=== PATIENT | female | born 1945 | race Asian ===

== ENCOUNTER 2024-04-09 15:21 | Emergency (ER) | payer MEDICARE, SELFPAY ==
[2024-04-09 15:50] VITALS: BP 134/88; PULSE 81; RESP 18; TEMP 36.2; O2SAT 98; BMI 28.8
--- NOTE | 2024-04-09 15:51 | ED.GENADULT ---
HPI - General Adult General Chief complaint: Recheck/Abnormal Lab/Rx Stated complaint: patient states doc sent her here for shot Related Data Allergies Allergy/AdvReac Type Severity Reaction Status Date / Time No Known Allergies Allergy Verified 04/09/24 16:02 [facility] Social History Social History Do you have a plan to hurt others: No Plan Physical Exam ED Vital Signs: Vital Signs - 24 hr 04/09/24 15:50 Temperature 97.2 F Pulse Rate 81 Respiratory Rate 18 Blood Pressure 134/88 Pulse Oximetry 98 Oxygen Delivery Method Room Air BMI result Body Mass Index 28.8 Course Course Course Narrative: This is a rapid medical exam performed by Jocelyne Montanez NP: Additional HPI, ROS, PE not included below will be deferred to primary provider. Patient is an 79-year-old Colombian speaking female presenting to the ED stating that her PCP told her that her iron level was low and potassium level is high, advised her to come to the ED. [facility] grandson stating that they changed their mind and want to leave, will follow up with PCP. Plan: EKG, labs Video hourly sign language interpreter # [id number] Discharge Plan Discharge Clinical Impression: Diagnosis unknown Patient Disposition: Left W/O Completing Treatment Print Language: Unknown
--- NOTE | 2024-04-09 16:08 | PC.NURSE ---
Patient and family member state that they have changed their mind about getting blood drawn and being seen at this time stating that they will call PCP for follow up.
--- OUTSIDE RECORDS SUMMARY | 2024-04-09 16:40 | XMS_ITS | Continuity of Care Document ---
Author Organization [facility] Address [address] [place] [address]- Care Team Providers Care Email Marketing Specialist Name Role Phone Not on Staff, PCP Primary Care Physician Unavail able Encounter [facility] Date(s): 02/12/23 - 03/14/23 [facility] [address], [place] [address] Attending Physician: Fabrizio Randall Admitting Physician: Fabrizio Randall Referring Physician: AdmtrFabrizio Allergies, Adverse Reactions, Alerts No Known Allergies Medications aspirin 81 mg oral delayed release tablet 81 mg, 1, tablet, By Mouth, Daily, # 30 tablet, Refills 0, Maintenance, 07/23/19 8:27:53 EDT Start Date: 07/23/19 Status: Ordered furosemide 20 mg oral tablet 20 mg, 1, tablet, By Mouth, Daily, # 30 tablet, Refills 0, Maintenance, 07/23/19 8:28:14 EDT Start Date: 07/23/19 Status: Ordered lisinopril 5 mg oral tablet 5 mg, 1, tablet, By Mouth, Daily, # 30 tablet, Refills 0, Maintenance, 07/23/19 8:27:40 EDT Start Date: 07/23/19 Status: Ordered metoprolol succinate 25 mg oral capsule, extended release 1 capsule = 25 mg, By Mouth, Daily, # 30 capsule, 0 Refills, Maintenance, 07/23/19 8:27:28 EDT, ER Capsule Start Date: 07/23/19 Status: Ordered naproxen 375 mg oral tablet 375 mg, 1, tablet, By Mouth, 2 times a day, # 180 tablet, Refills 0, Maintenance, 07/23/19 8:28:42 EDT Start Date: 07/23/19 Status: Ordered Patient Care team information Care Team Personnel Name: Not on Staff, PCP Position: S Physician (General Medicine) Member Role: PCP
== END 2024-04-09 16:47 | disposition left against medical advice (07) ==
PROVIDERS: Emergency Provider Emergency Medicine
DX: R78.9 Finding of unspecified substance, not normally found in blood (principal); Z53.21 Procedure and treatment not carried out due to patient leaving prior to being seen by health care provider
CPT/HCPCS: 99281

== ENCOUNTER 2024-04-10 16:56 | Emergency (ER) | payer MEDICARE, SELFPAY ==
[2024-04-10 17:00] VITALS: BP 168/63; PULSE 78; RESP 16; TEMP 36.1; O2SAT 98; BMI 26.5
--- NOTE | 2024-04-10 17:00 | ECG_ITS ---
Test Reason : HIGH POTASSIUM Blood Pressure : / mmHG Vent. Rate : 082 BPM Atrial Rate : 082 BPM P-R Int : 178 ms QRS Dur : 088 ms QT Int : 376 ms P-R-T Axes : 041 -13 041 degrees QTc Int : 439 ms Normal sinus rhythm Minimal voltage criteria for LVH, may be normal variant ( R in aVL ) Borderline ECG When compared with ECG of 04-JUL-2019 07:04, ST no longer depressed in Lateral leads T wave inversion no longer evident in Lateral leads Referred By: Amber Almeida Electronically Signed By:RACHEL BATISTA
--- NOTE | 2024-04-10 17:00 | ED.GENADULT ---
HPI - General Adult General Chief complaint: Recheck/Abnormal Lab/Rx Stated complaint: High potassium Time Seen by Provider: 04/10/24 18:09 History of Present Illness ED Provider: Dr. Guo HPI narrative: 79 y/o F patient; PMH HTN, HFpEF; presents from home with report of high potassium level. The patient has PCP performed labs completed on Monday04/09/2024. She was called and told she had an elevated potassium and should proceed to the emergency department. She arrived in the emergency department yesterday 04/09/2024 but elected to leave prior to treatment. She is currently prescribed Lisinopril 5mg and Lasix 20mg daily. She denies any symptoms. Related Data Allergies Allergy/AdvReac Type Severity Reaction Status Date / Time No Known Allergies Allergy Verified 04/10/24 17:02 Review of Systems Review of Systems: Yes all other systems are reviewed and are negative Neurologic: Denies Sensory deficit (Neuro) [facility] Past Medical History Attestation statement: The following information was validated with the patient. Source: unable to obtain Social History Social History Advance Directives: No Advance Directives Information Provided: No Physical Exam ED Vital Signs: Vital Signs - 24 hr 04/10/24 17:00 04/10/24 19:18 Temperature 96.9 F 98.4 F Pulse Rate 78 79 Respiratory Rate 16 16 Blood Pressure 168/63 H 163/78 H Pulse Oximetry 98 98 Oxygen Delivery Method Room Air Room Air BMI result Body Mass Index 26.5 Patient is afebrile, hypertensive. Const General: cooperative and no acute distress Orientation/consciousness: patient oriented x3 HENMT Head: Yes normal to inspection and Yes atraumatic Eyes General: appearance normal, both eyes and all related structures Pupils: Equal, round and reactive pupils present EOM: EOMs intact bilaterally Neck Neck: Yes normal visual inspection, Yes full ROM, Yes supple and No tender Chest Chest palpation & inspection: normal inspection of the chest and normal palpation of entire chest wall Resp Effort & Inspection: normal respiratory effort, able to speak in complete sentences, no cough and no respiratory distress Auscultation: clear to auscultation bilaterally Cardio Rate: regular rate Rhythm: regular rhythm Peripheral pulses: Peripheral pulses 2+ throughout GI Inspection: Yes normal to inspection, No Abdominal wall edema and No distended Palpation (GI): Soft to palpation, not firm, nontender, no guarding and not rigid Auscultation: normal bowel sounds General: Yes no CVA tenderness Back/Spine/Pelvis Back: no CVA tenderness Neuro General: patient oriented x3 Cranial nerves: Yes Equal, round and reactive pupils present Motor exam (neuro): 5/5 motor strength present throughout Sensory Exam: No Sensory deficit (Neuro) Course Course Course Narrative: This is an RME done by JEREMIAH Almeida: Additional HPI, ROS, PE not included below will be deferred to primary provider. 79 yo f presents for repeat labs was noted to have a high potassium on outpatient labs. No cp. Reevaluation(s) Reevaluation #1: Patient is afebrile and hemodynamically stable. Reviewed triage labs and EKG. EKG is NSR 82BPM without ischemic changes. Labs with mild anemia 10.8. Potassium 5.7. Cr 2.06 (prior 1.76 in 2019). Providing 1L IVF, insulin with dextrose, and Lokelma to shift potassium. Discussed with hospitalist criteria for possible admission given hyperkalemia. Hospitalist recommended repeat BMP and to stop lisinopril. Repeat BMP with improvement in Cr to 1.81, improvement in K to 5.5. Patient remains asymptomatic. Plan: Discharge to home with PCP follow up within 48 hours Condition: Stable Medications Administered Generic Name Dose Route Start Last Admin Trade Name Freq PRN Reason Stop Dose Admin Dextrose 1,000 mls @ 50 mls/hr 04/10/24 18:30 04/10/24 21:14 D10 IVCONT 50 mls/hr .Q20H GERMAIN Administration Discontinued Medications Generic Name Dose Route Start Last Admin Trade Name Freq PRN Reason Stop Dose Admin Lactated Ringer's 1,000 mls @ 999 mls/hr 04/10/24 18:30 04/10/24 21:15 Lr IV 04/10/24 19:30 Infused .Q1H1M GERMAIN Infusion Insulin Human Regular 5 unit 04/10/24 18:21 04/10/24 19:47 Insulin Regular, Human 100 Unit/Ml 10 Ml Vial IVPUSH 04/10/24 18:22 5 unit ONCE ONE Administration Sodium Zirconium Cyclosilicate 10 gm 04/10/24 18:21 04/10/24 19:47 Sodium Zirconium Cyclosilicate 10 Gm Powd.Pack PO 04/10/24 18:22 10 gm ONCE ONE Administration Medical Decision Making Lab Data 04/10/24 17:17 04/10/24 21:12 Labs: Lab Results 04/10/24 04/10/24 Range/Units 17:17 21:12 WBC 9.0 (4.8-10.8) X10*3/uL RBC 4.04 L (4.20-5.50) X10*6/uL Hgb 10.8 L (12.0-16.0) g/dl Hct 33.3 L (37.0-47.0) % MCV 82.4 (80.0-98.0) fL MCH 26.7 L (27.0-33.0) pg MCHC 32.4 (31.0-35.0) g/dl RDW 15.4 (11.0-16.0) % Plt Count 312 (160-400) X10*3/uL MPV 8.4 L (9.4-12.3) fL Immature Gran % (Auto) 0.3 (0.0-0.4) % Neut % (Auto) 38.0 L (45-73) % Lymph % (Auto) 45.2 H (20-40) % [place] % (Auto) 5.4 (2-11) % Eos % (Auto) 11.0 H (0-4) % Baso % (Auto) 0.1 (0-2) % Lymph # (Auto) 4.1 (1.2-4.9) X10*3/uL [place] # (Auto) 0.5 (0.1-1.2) X10*3/uL Eos # (Auto) 1.0 H (0.0-0.4) X10*3/uL Baso # (Auto) 0.0 (0.0-0.2) X10*3/uL Abs Immat Gran (auto) 0.03 (0.00-0.03) X10*3/uL Absolute Neuts (auto) 3.4 (2.0-8.3) x10*3/uL Absolute Nucleated RBC 0.000 (0.0-0.012) X10*3/uL Nucleated RBC % (auto) 0.0 (0.0-0.2) /100WBC Sodium 137 138 (135-145) mmol/L Potassium 5.7 H 5.5 H (3.3-5.1) mmol/L Chloride 107 108 (96-108) mmol/L Carbon Dioxide 25 23 (22-29) mmol/L Anion Gap 11 L 13 (12-20) BUN 29 H 27 H (9-16) mg/dL Creatinine 2.06 H 1.81 H (0.5-1.4) mg/dL Estim Creat Clear Calc 17.5 20.0 Estimated GFR 23 27 Random Glucose 111 81 (60-115) mg/dL Calcium 8.8 8.7 (8.4-10.2) mg/dL Magnesium 2.1 (1.6-2.6) mg/dL Total Bilirubin 0.3 (0.0-1.0) mg/dL AST 18 (5-31) U/L ALT 10 (0-31) U/L Alkaline Phosphatase 75 (39-117) U/L Total Protein 7.5 (6.5-8.0) g/dL Albumin 3.7 (3.5-5.0) g/dL Independent Interpretation I performed an independent interpretation of an: EKG Interpretation: EKG is NSR 82BPM without ischemic changes. Discharge Plan Discharge Clinical Impression: Hyperkalemia Patient Disposition: Home, Self-Care Instructions: Hyperkalemia (ED) Additional Instructions: As we discussed, you were seen in the hospital for elevated potassium. You received IV medications and your potassium and kidney function improved. STOP TAKING YOUR LISINOPRIL IMMEDIATELY. Follow up with your PCP within 48 hours for repeat labs and re-evaluation. Return to the emergency department for: Passing out Chest pain Difficulty breathing Print Language: Nepalese (Pashto)
[2024-04-10 17:20] LABS: MANUAL DIFF FLAG NO
[2024-04-10 17:22] LABS: Basophils Percent Auto 0.1 % (0-2); Hematocrit 33.3 % (37.0-47.0); Hemoglobin 10.8 g/dl (12.0-16.0); Imm Gran Abs Auto 0.03 X10*3/uL (0.00-0.03); Imm Gran Pct Auto 0.3 % (0.0-0.4); Lymphocytes Absolute Auto 4.1 X10*3/uL (1.2-4.9); Lymphocytes Percent Auto 45.2 % (20-40); Mean Corpuscular HGB Conc 32.4 g/dl (31.0-35.0); Mean Corpuscular Hemoglobin 26.7 pg (27.0-33.0); Mean Corpuscular Volume 82.4 fL (80.0-98.0); Mean Platelet Volume 8.4 fL (9.4-12.3); Monocytes Absolute Auto 0.5 X10*3/uL (0.1-1.2); Monocytes Percent Auto 5.4 % (2-11); Neutrophils Absolute Auto 3.4 x10*3/uL (2.0-8.3); Platelet Count 312 X10*3/uL (160-400); Red Blood Count 4.04 X10*6/uL (4.20-5.50); Red Cell Distribution Width 15.4 % (11.0-16.0)
[2024-04-10 17:34] LABS: Alanine Aminotransferase 10 U/L (0-31); Albumin Level 3.7 g/dL (3.5-5.0); Alkaline Phosphatase 75 U/L (39-117); Anion Gap 11 (12-20); Aspartate Amino Transferase 18 U/L (5-31); Bilirubin Total 0.3 mg/dL (0.0-1.0); Blood Urea Nitrogen 29 mg/dL (9-16); Calcium 8.8 mg/dL (8.4-10.2); Carbon Dioxide 25 mmol/L (22-29); Chloride 107 mmol/L (96-108); Creatinine Clr Calc Pharmacy 17.5; Estimated Glomerular Filt Rate 23; Glucose Random 111 mg/dL (60-115); Magnesium 2.1 mg/dL (1.6-2.6); Potassium 5.7 mmol/L (3.3-5.1); Sodium 137 mmol/L (135-145); Total Protein 7.5 g/dL (6.5-8.0)
[2024-04-10 19:18] VITALS: BP 163/78; PULSE 79; RESP 16; TEMP 36.9; O2SAT 98
--- NOTE | 2024-04-10 19:19 | MHC.EDTECH ---
Patient vitals taken and Patient was hooked up to cardiac cath rn ,Patient was change into hospital attire .
[2024-04-10] MEDS: Insulin Regular, Human 100 UNIT/ML 10 ML VIAL IVPUSH (19:47)
[2024-04-10] MEDS: Sodium Zirconium Cyclosilicate 10 GM POWD.PACK PO (19:47)
[2024-04-10] MEDS: Lactated Ringers 1,000 ML 999 ML IV (19:53)
[2024-04-10] MEDS: Dextrose 10 % 1,000 ML 50 ML IVCONT (21:14)
[2024-04-10 21:32] LABS: Anion Gap 13 (12-20); Blood Urea Nitrogen 27 mg/dL (9-16); Calcium 8.7 mg/dL (8.4-10.2); Carbon Dioxide 23 mmol/L (22-29); Chloride 108 mmol/L (96-108); Estimated Glomerular Filt Rate 27; Glucose Random 81 mg/dL (60-115); Potassium 5.5 mmol/L (3.3-5.1); Sodium 138 mmol/L (135-145)
[2024-04-10 22:02] VITALS: BP 167/80; PULSE 84; RESP 16; TEMP 37.1; O2SAT 97
[2024-04-10 22:09] VITALS: BP 167/80; PULSE 84; RESP 16; TEMP 37.1; O2SAT 97
== END 2024-04-10 22:09 | disposition home or self-care (01) ==
PROVIDERS: Physician Assistant; Emergency Provider Emergency Medicine
DX: E87.5 Hyperkalemia (principal); D64.9 Anemia, unspecified; Z79.899 Other long term (current) drug therapy; I11.0 Hypertensive heart disease with heart failure; I50.30 Unspecified diastolic (congestive) heart failure
CPT/HCPCS: 36415; 80048; 80053; 83735; 85025; 93005; 96361; 96374; 99284; J7120

== ENCOUNTER → 2024-04-10 17:00 | Outpatient (BNV) | payer MEDICARE, SELFPAY | PROVIDERS: Emergency Provider Emergency Medicine; Visit Provider Internal Medicine | DX: E87.5 Hyperkalemia (principal); R94.31 Abnormal electrocardiogram [ECG] [EKG] | CPT/HCPCS: 93010 ==

== ENCOUNTER 2024-08-13 09:07 | Emergency (ER) | payer MEDICARE, SELFPAY ==
--- NOTE | ~2024-08-13 | XR_ITS ---
EXAMINATION: XR BILATERAL FEET CLINICAL INFORMATION: Pain. COMPARISON: None available. TECHNIQUE: 3 views of the right foot. 4 views of the left foot. FINDINGS: Right Foot: Small plantar and posterior calcaneal spurs. Diffuse demineralization. Moderate degenerative changes midfoot and at the tarsometatarsal joints. There are subtle scattered lucencies with notable examples along the lateral aspect of the second metatarsal head and at the medial base of the second toe proximal phalanx. Left Foot: Small plantar and posterior calcaneal spurs. Diffuse demineralization. Moderate degenerative changes at the midfoot and tarsometatarsal joints. There are subtle scattered lucencies with notable examples of lucency/erosion at the base of the cuboid and medial aspects of the first and second metatarsal heads. Moderate degenerative changes in the first metatarsophalangeal joint. XR/XR foot RT 2V IMPRESSION: 1. Moderate degenerative changes bilateral feet. 2. 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 This study was presented today 08/13/2024 for interpretation. Stat results provided at this time as requested by referring provider. Electronically signed by: Judith Johnson MD 08/13/2024 12:21 PM [facility]
--- NOTE | ~2024-08-13 | US_ITS ---
EXAMINATION: US TRIPLEX LOWER EXTREMITY, BILATERAL CLINICAL INFORMATION: Bilateral lower extremity edema COMPARISON: None available. TECHNIQUE: Color-flow triplex imaging with spectral analysis and compression Doppler were performed on the bilateral lower extremities. FINDINGS: Respiratory variation, normal compression and augmented flow are noted throughout the bilateral lower extremities. The visualized common femoral vein, superficial femoral vein, profunda femoral vein, popliteal vein and midcalf peroneal and posterior tibial venous segments show no evidence of deep venous thrombosis bilaterally. There is no Jeronimo's cyst. US/US venous duplex LE BI IMPRESSION: No evidence of deep venous thrombosis involving the bilateral lower extremities. This study was presented today 08/13/2024 for interpretation. Stat results provided at this time as requested by referring provider. Electronically signed by: Judith Johnson MD 08/13/2024 12:30 PM [facility] JARQUIN
--- NOTE | ~2024-08-13 | XR_ITS ---
EXAMINATION: XR BILATERAL FEET CLINICAL INFORMATION: Pain. COMPARISON: None available. TECHNIQUE: 3 views of the right foot. 4 views of the left foot. FINDINGS: Right Foot: Small plantar and posterior calcaneal spurs. Diffuse demineralization. Moderate degenerative changes midfoot and at the tarsometatarsal joints. There are subtle scattered lucencies with notable examples along the lateral aspect of the second metatarsal head and at the medial base of the second toe proximal phalanx. Left Foot: Small plantar and posterior calcaneal spurs. Diffuse demineralization. Moderate degenerative changes at the midfoot and tarsometatarsal joints. There are subtle scattered lucencies with notable examples of lucency/erosion at the base of the cuboid and medial aspects of the first and second metatarsal heads. Moderate degenerative changes in the first metatarsophalangeal joint. XR/XR foot LT 2V IMPRESSION: 1. Moderate degenerative changes bilateral feet. 2. 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 This study was presented today 08/13/2024 for interpretation. Stat results provided at this time as requested by referring provider. Electronically signed by: Judith Johnson MD 08/13/2024 12:21 PM [facility]BY
--- NOTE | ~2024-08-13 | XR_ITS ---
EXAMINATION: XR CHEST CLINICAL INFORMATION: Cough COMPARISON: Chest radiograph from 07/05/2019 TECHNIQUE: Frontal view of the chest was obtained. FINDINGS: Stable pulmonary vascular prominence. No pneumothorax. Trachea is midline. Cardiac mediastinal silhouette is stable. No large pleural effusion. Osseous structures are intact. Soft tissues are unremarkable. XR/XR chest 1V IMPRESSION: Stable pulmonary vascular prominence. Electronically signed by: Jason De Paz MD 08/13/2024 09:52 AM EST
[2024-08-13 09:17] VITALS: BP 153/82; BP 161/70; PULSE 83; PULSE 85; RESP 20; TEMP 36.8; O2SAT 95; O2SAT 99; BMI 28.4
[2024-08-13 10:19] LABS: Influenza A PCR NEGATIVE (Negative); Influenza B PCR NEGATIVE (Negative); Resp Syncy Virus RNA Qual PCR NEGATIVE (Negative); SARS COV2 PCR INHOUSE NEGATIVE (Negative)
--- NOTE | 2024-08-13 10:46 | ED_ITS ---
HPI - General Adult General Chief complaint: General Medical Stated complaint: from home, cc new onset weakness Time Seen by Provider: 08/13/24 10:33 Source: patient and EMS Mode of arrival: EMS Limitations: no limitations History of Present Illness HPI narrative: Patient presented to the emergency department with chief complaint of bilateral feet pain pain is localized in the soles of the feet this is been going on for about a week no trauma. History is obtained via the [place] Islander hood fitter. Denies any fever chills she does have some cough. Onset (ago): week(s) (1) Location: lower extremity (soles of feet) Radiation: non-radiation Severity: moderate Quality: burning Pain Consistency: constant Relieving factors: none Exacerbating factors: none Associated symptoms: denies other symptoms Related Data Allergies Allergy/AdvReac Type Severity Reaction Status Date / Time No Known Allergies Allergy Verified 08/13/24 09:18 Review of Systems 2 Constitutional: Constitutional: Reports no additional constitutional complaints ENT: Reports system reviewed and no additional complaints, except as documented Respiratory: Respiratory: Reports no additional respiratory complaints PMFSH Past Medical History Attestation statement: The following information was validated with the patient. Reminder: Hypertension, CAD Social History Social History Advance Directives: Yes Advance Directives Information Provided: Yes Advance Directives on File: No Do you have a plan to hurt others: No Plan Physical Exam ED Vital Signs: Vital Signs - 24 hr 08/13/24 09:17 08/13/24 11:10 08/13/24 13:07 Temperature 98.2 F 99.0 F Pulse Rate 83 81 81 Respiratory Rate 20 21 H Blood Pressure 161/70 H 158/74 H 158/74 H Pulse Oximetry 95 98 98 Oxygen Delivery Method Room Air Room Air 08/13/24 14:48 08/13/24 15:02 Temperature 99.3 F 99.3 F Pulse Rate 87 87 Respiratory Rate 21 H 21 H Blood Pressure 131/67 131/67 Pulse Oximetry 96 96 Oxygen Delivery Method Room Air Room Air BMI result Body Mass Index 28.4 She looks well she is not toxic-appearing comfortable in the stretcher Const General: cooperative Nutritional Appearance: well nourished Orientation/consciousness: patient oriented x3 HENMT Head: Yes normal to inspection Ears: hearing grossly normal bilaterally Face and sinus: Yes normal facial exam Mouth: Normal oral and palatal mucosa present Throat: Yes posterior oropharynx normal Neck Neck: Yes normal visual inspection Chest Chest palpation & inspection: normal inspection of the chest Resp Effort & Inspection: normal respiratory effort Auscultation: clear to auscultation bilaterally Cardio Jugular venous distension: no JVD Rate: regular rate Rhythm: regular rhythm GI Inspection: Yes normal to inspection Palpation (GI): Soft to palpation, not firm, nontender and no guarding Auscultation: normal bowel sounds Skin General skin exam: no rashes or lesions noted and elasticity normal Lesions: no lesions Rashes: no rashes Hair: normal Neuro General: patient oriented x3 Extrem Other: Patient has good perfusion in the lower extremity palpable pulses in both feet. Course Reevaluation(s) Reevaluation #1: Spoke with daughter at bed side US and xray negative will get casework specialist and PT eval Time: 12:42 Reevaluation #2: Failed PT will need short term rehab Time: 13:33 Reevaluation #3: family is refusing short tem rehab ,they want to take pt home,casework specialist arranging VNA Time: 13:37 Medications Administered Discontinued Medications Generic Name Dose Route Start Last Admin Trade Name Freq PRN Reason Stop Dose Admin Acetaminophen 975 mg 08/13/24 10:44 08/13/24 11:33 Acetaminophen 325 Mg Tablet PO 08/13/24 10:45 975 mg ONCE ONE Administration Medical Decision Making Medical Decision Making [facility] Narrative: Patient presented complaining of feet pain we get x-ray blood work Differential Diagnosis Differential Diagnoses: The differential diagnosis associated with the presentation includes Metatarsalgia, stress fracture /unlikely DVT Admission/Observation Consideration of admission/observation: Escalation of care including admission/observation considered Lab Data [facility] Lab Attestation statement: I reviewed the patient's lab results. 08/13/24 11:18 08/13/24 11:18 Labs: Lab Results 08/13/24 08/13/24 Range/Units 09:33 11:18 WBC 13.2 H (4.8-10.8) X10*3/uL RBC 3.79 L (4.20-5.50) X10*6/uL Hgb 9.6 L (12.0-16.0) g/dl Hct 29.8 L (37.0-47.0) % MCV 78.6 L (80.0-98.0) fL MCH 25.3 L (27.0-33.0) pg MCHC 32.2 (31.0-35.0) g/dl RDW 15.2 (11.0-16.0) % Plt Count 350 (160-400) X10*3/uL MPV 8.4 L (9.4-12.3) fL Immature Gran % (Auto) 0.8 H (0.0-0.4) % Neut % (Auto) 71.0 (45-73) % Lymph % (Auto) 18.0 L (20-40) % [place] % (Auto) 5.9 (2-11) % Eos % (Auto) 3.9 (0-4) % Baso % (Auto) 0.4 (0-2) % Lymph # (Auto) 2.4 (1.2-4.9) X10*3/uL [place] # (Auto) 0.8 (0.1-1.2) X10*3/uL Eos # (Auto) 0.5 H (0.0-0.4) X10*3/uL Baso # (Auto) 0.1 (0.0-0.2) X10*3/uL Abs Immat Gran (auto) 0.10 H (0.00-0.03) X10*3/uL Absolute Neuts (auto) 9.4 H (2.0-8.3) x10*3/uL Absolute Nucleated RBC 0.000 (0.0-0.012) X10*3/uL Nucleated RBC % (auto) 0.0 (0.0-0.2) /100WBC Sodium 137 (135-145) mmol/L Potassium 4.5 (3.3-5.1) mmol/L Chloride 107 (96-108) mmol/L Carbon Dioxide 22 (22-29) mmol/L Anion Gap 13 (12-20) BUN 43 H (9-16) mg/dL Creatinine 1.89 H (0.5-1.4) mg/dL Estim Creat Clear Calc 19.7 Estimated GFR 26 Random Glucose 108 (60-115) mg/dL Calcium 9.1 (8.4-10.2) mg/dL Total Bilirubin 0.3 (0.0-1.0) mg/dL AST 39 H (5-31) U/L ALT 30 (0-31) U/L Alkaline Phosphatase 96 (39-117) U/L Total Protein 7.4 (6.5-8.0) g/dL Albumin 3.3 L (3.5-5.0) g/dL Influenza Type A (PCR) NEGATIVE (Negative) Influenza Type B (PCR) NEGATIVE (Negative) RSV RNA Qual (PCR) NEGATIVE (Negative) SARS-CoV-2 RNA (RT-PCR) NEGATIVE (Negative) Independent Interpretation I performed an independent interpretation of an: Plain X-Ray and Ultrasound Interpretation: no fx ,no DVT Radiology Impression Discussion of test interpretation with radiology: I have reviewed the radiologist's reading. Independent Historian Clinical information obtained from an independent historian. History obtained from or confirmed by: Other (daughter) Discharge Plan Discharge Clinical Impression: Bilateral pain of leg and foot, Gait instability Chronic renal failure Qualifiers: Chronic kidney disease stage: unspecified stage Qualified Code(s): N18.9 - Chronic kidney disease, unspecified Patient Disposition: Home, Self-Care Instructions: Leg Pain (ED) Additional Instructions: You are refusing in the short term rehab recommended by physical therapy, you are a fall risk. Follow-up with your primary care physician. Given [facility] and you chronic renal insufficiency for pain medicine you should take only Tylenol (acetaminophen) 1 g ( 2 extra strenght) every 6 hours as needed Referrals: Physician,Unknown J [Primary Care Provider] - 2 days Interventions: ED Discharge Assessment Last Done: 08/13/24 15:02 Discharge Date/Time: 08/13/24 15:02 Print Language: [place]er (Robert)
[2024-08-13 11:10] VITALS: BP 158/74; PULSE 81; RESP 21; TEMP 37.2; O2SAT 98
[2024-08-13 11:21] LABS: MANUAL DIFF FLAG NO
[2024-08-13 11:25] LABS: Basophils Absolute Auto 0.1 X10*3/uL (0.0-0.2); Basophils Percent Auto 0.4 % (0-2); Eosinophils Absolute Auto 0.5 X10*3/uL (0.0-0.4); Eosinophils Percent Auto 3.9 % (0-4); Hematocrit 29.8 % (37.0-47.0); Hemoglobin 9.6 g/dl (12.0-16.0); Imm Gran Pct Auto 0.8 % (0.0-0.4); Lymphocytes Absolute Auto 2.4 X10*3/uL (1.2-4.9); Mean Corpuscular HGB Conc 32.2 g/dl (31.0-35.0); Mean Corpuscular Hemoglobin 25.3 pg (27.0-33.0); Mean Corpuscular Volume 78.6 fL (80.0-98.0); Mean Platelet Volume 8.4 fL (9.4-12.3); Monocytes Absolute Auto 0.8 X10*3/uL (0.1-1.2); Monocytes Percent Auto 5.9 % (2-11); Neutrophils Absolute Auto 9.4 x10*3/uL (2.0-8.3); Platelet Count 350 X10*3/uL (160-400); Red Blood Count 3.79 X10*6/uL (4.20-5.50); Red Cell Distribution Width 15.2 % (11.0-16.0); White Blood Count 13.2 X10*3/uL (4.8-10.8)
[2024-08-13] MEDS: Acetaminophen 325 MG TABLET 975 MG PO (11:33)
[2024-08-13 11:44] LABS: Alanine Aminotransferase 30 U/L (0-31); Albumin Level 3.3 g/dL (3.5-5.0); Anion Gap 13 (12-20); Aspartate Amino Transferase 39 U/L (5-31); Bilirubin Total 0.3 mg/dL (0.0-1.0); Blood Urea Nitrogen 43 mg/dL (9-16); Calcium 9.1 mg/dL (8.4-10.2); Carbon Dioxide 22 mmol/L (22-29); Chloride 107 mmol/L (96-108); Creatinine Clr Calc Pharmacy 19.7; Estimated Glomerular Filt Rate 26; Glucose Random 108 mg/dL (60-115); Potassium 4.5 mmol/L (3.3-5.1); Sodium 137 mmol/L (135-145); Total Protein 7.4 g/dL (6.5-8.0)
--- NOTE | 2024-08-13 11:52 | PC.NURSE ---
family at bedside, provided patient with meal. awaiting imaging results.
[2024-08-13 12:00] LABS: Alkaline Phosphatase 96 U/L (39-117)
[2024-08-13 13:07] VITALS: BP 158/74; PULSE 81; O2SAT 98
--- NOTE | 2024-08-13 13:29 | MHC.CM.ED ---
Received case management consult from Dr Julian. Patient came to the ER due to weakness. Work up essentially negative. Physical therapy eval completed. Short term rehab is recommended. Patient is primarily Andorran speaking. Patient is currently sleeping. Patient's daughter in law at bedside. Patient's lives with family that can help care for her 01/05. Physical therapy recommendations explained. [facility] states patient would not be agreeable because of the language barrier. Patient will d/c home with VNA for usp and physical therapy. BLS will be booked. Patient, Debra ZUNIGA RN and Dr Julian aware. CM will work on arranging VNA and BLS transport home. Continue to monitor for d/c needs.
--- NOTE | 2024-08-13 14:31 | MHC.CM.ED ---
Addendum entered by Nyasia Griffin 08/13/24 15:08: Pt has been accepted by [facility]. Face to Face uploaded into [employer]. Family to transport pt to home. Original Note: [facility] referrals made for skilled RN and PT visits. No acceptance at this time. Pt will need BLS transport to home once VNA has been secured. ED CM to follow.
[2024-08-13 14:48] VITALS: BP 131/67; PULSE 87; RESP 21; TEMP 37.4; O2SAT 96
--- NOTE | 2024-08-13 14:49 | MHC.CM.ED ---
Addendum entered by Maryan Villa 08/13/24 15:16: Per previous CM, [facility] has accepted patient. F2F uploaded. Original Note: [facility] is willing and able to transport patient home. No VNA offers obtained at this time. Call placed to Radha at [facility] for assistance with VNA and home PT. Pt to be discharged home. CM to follow
[2024-08-13 15:02] VITALS: BP 131/67; PULSE 87; RESP 21; TEMP 37.4; O2SAT 96
== END 2024-08-13 15:02 | disposition home or self-care (01) ==
PROVIDERS: Emergency Provider Emergency Medicine; PCP Family Medicine
DX: M79.671 Pain in right foot (principal); M79.672 Pain in left foot; R26.89 Other abnormalities of gait and mobility; R05.9 Cough, unspecified; N18.9 Chronic kidney disease, unspecified; R60.0 Localized edema; Z03.818 Encounter for observation for suspected exposure to other biological agents ruled out; Z79.899 Other long term (current) drug therapy
CPT/HCPCS: 0241U; 36415; 71045; 73620; 80053; 85025; 93970; 97162; 99284

== ENCOUNTER 2025-01-01 15:22 | Emergency (ER) | payer OTHER, SELFPAY ==
--- NOTE | ~2025-01-01 | XR_ITS ---
EXAMINATION: XR HAND 3 OR MORE VIEWS RIGHT HISTORY: pain COMPARISON: There are no prior studies available for comparison. FINDINGS: Three views of the right hand are submitted. Osseous mineralization is normal. There is no fracture or dislocation. 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 There is a tiny radiopaque foreign body in the soft tissues adjacent to the distal phalanx of the index finger. 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 Tiny radiopaque foreign body in the soft tissues adjacent to the distal phalanx of the index finger. Electronically signed by: Abhishek Langley MD 01/01/2025 03:52 PM EDT
[2025-01-01 15:27] VITALS: BP 141/84; PULSE 104; RESP 19; TEMP 36.8; O2SAT 99; BMI 25.0
--- NOTE | 2025-01-01 15:27 | ED.GENADULT ---
HPI - General Adult General Chief complaint: Extremity Injury, Upper Stated complaint: both hands extremely swollen / painful Time Seen by Provider: 01/01/25 16:25 Source: patient and family Mode of arrival: ambulatory Limitations: no limitations History of Present Illness ED Provider: HPI narrative: Patient's history of hypertension on diuretics comes here for 1 week of swelling of right hand involving the metacarpophalangeal joint and IP joint with significant swelling also has swelling in the elbow and left hand no fever no injury no open wound patient does not have any history of rheumatoid arthritis or gout does have morning stiffness no involvement of the larger joints no fever Related Data Previous Rx's ?Medication ?Instructions ?Recorded allopurinol 100 mg tablet 50 mg (1/2 x 100 mg) PO .Every 01/01/25 other day #30 tabs prednisone 20 mg tablet 40 mg (2 x 20 mg) PO DAILY #10 tabs 01/01/25 Allergies Allergy/AdvReac Type Severity Reaction Status Date / Time No Known Allergies Allergy Verified 01/01/25 15:30 Review of Systems Review of Systems: Yes all other systems are reviewed and are negative [facility] Social History Social History Advance Directives: Yes Advance Directives Information Provided: Yes Advance Directives on File: No Do you have a plan to hurt others: No Plan Physical Exam ED Vital Signs: Vital Signs - 24 hr 01/01/25 15:27 01/01/25 17:14 01/01/25 19:02 Temperature 98.2 F 98.2 F 98.2 F Pulse Rate 104 H 74 74 Respiratory Rate 19 16 16 Blood Pressure 141/84 H 133/59 L 133/59 L Pulse Oximetry 99 100 100 Oxygen Delivery Method Room Air Room Air BMI result Body Mass Index 25.0 Appearance: Alert. Oriented X3. No acute distress. Eyes: pallor+ ENT: Pharynx normal. Oral Mucosa moist Neck: Normal inspection. Neck supple. CVS: Normal heart rate and rhythm. Pulses normal. Respiratory: No respiratory distress. Equal air entry bilateral, no wheezing/rales/rhonchi Abdomen: Soft and nontender. Bowel sounds are present, no mass palpable, no CVA tenderness Skin: Skin warm and dry. Normal skin color. Normal skin turgor. Extremities: No lower extremity edema. No calf tenderness significant swelling of the MCP and IP joints of the right hand with erythema Neuro: Oriented X 3. No motor deficit. Course Course Course Narrative: RME, this is a rapid medical exam performed by Tuan Joy please refer to primary provider for complete H&P- 79-year-old female presents for evaluation of mostly right hand pain. she denies any injury, but the hand has been markedly swollen for the last few days. Her pain is 10/10. She denies any specific injury. Plan for labs, x-ray of the right hand. The patient is primarily Somali speaking. Medications Administered Discontinued Medications Generic Name Dose Route Start Last Admin Trade Name Freq PRN Reason Stop Dose Admin Ibuprofen 400 mg 01/01/25 18:47 01/01/25 19:02 Ibuprofen 400 Mg Tablet PO 01/01/25 18:48 400 mg ONCE ONE Administration Prednisone 40 mg 01/01/25 16:37 01/01/25 17:48 Prednisone 20 Mg Tablet PO 01/01/25 16:38 40 mg ONCE ONE Administration Medical Decision Making Medical Decision Making [facility] Narrative: Patient with acute onset of polyarthritis no weakness small joints lab workup showed rheumatoid factor negative but uric acid level was 10.1 likely the gouty arthritis patient was given prednisone felt much better after the will discharge patient home on prednisone allopurinol 50 mg every other day as she has CKD with estimated GFR 25 and ibuprofen for pain Lab Data [facility] Lab Attestation statement: I reviewed the patient's lab results. 01/01/25 15:52 01/01/25 15:52 Labs: Lab Results 01/01/25 01/01/25 Range/Units 15:52 17:12 WBC 10.4 (4.8-10.8) X10*3/uL RBC 3.62 L (4.20-5.50) X10*6/uL Hgb 8.9 L (12.0-16.0) g/dl Hct 27.9 L (37.0-47.0) % MCV 77.1 L (80.0-98.0) fL MCH 24.6 L (27.0-33.0) pg MCHC 31.9 (31.0-35.0) g/dl RDW 17.4 H (11.0-16.0) % Plt Count 442 H D (160-400) X10*3/uL MPV 8.8 L (9.4-12.3) fL Immature Gran % (Auto) 0.8 H (0.0-0.4) % Neut % (Auto) 56.2 (45-73) % Lymph % (Auto) 30.0 (20-40) % [place] % (Auto) 6.5 (2-11) % Eos % (Auto) 6.2 H (0-4) % Baso % (Auto) 0.3 (0-2) % Lymph # (Auto) 3.1 (1.2-4.9) X10*3/uL [place] # (Auto) 0.7 (0.1-1.2) X10*3/uL Eos # (Auto) 0.6 H (0.0-0.4) X10*3/uL Baso # (Auto) 0.0 (0.0-0.2) X10*3/uL Abs Immat Gran (auto) 0.08 H (0.00-0.03) X10*3/uL Absolute Neuts (auto) 5.9 (2.0-8.3) x10*3/uL Absolute Nucleated RBC 0.000 (0.0-0.012) X10*3/uL Nucleated RBC % (auto) 0.0 (0.0-0.2) /100WBC ESR 75 H (0-20) MM/HR Sodium 138 (135-145) mmol/L Potassium 5.1 (3.3-5.1) mmol/L Chloride 110 H (96-108) mmol/L Carbon Dioxide 22 (22-29) mmol/L Anion Gap 11 L (12-20) BUN 24 H (9-16) mg/dL Creatinine 1.91 H (0.5-1.4) mg/dL Estim Creat Clear Calc 18.4 Estimated GFR 25 Random Glucose 106 (60-115) mg/dL Uric Acid 10.1 H (2.4-5.7) mg/dL Calcium 8.5 D (8.4-10.2) mg/dL Total Bilirubin 0.2 (0.0-1.0) mg/dL AST 24 (5-31) U/L ALT 10 (0-31) U/L Alkaline Phosphatase 75 (39-117) U/L C-Reactive Protein 2.01 H (< or = 0.50) mg/dL Total Protein 7.5 (6.5-8.0) g/dL Albumin 3.3 L (3.5-5.0) g/dL Lipase 49 (8-78) U/L Rheumatoid Factor < 13.0 (<15.0) IU/mL Discharge Plan Discharge Clinical Impression: Gouty arthritis Patient Disposition: Home, Self-Care Instructions: Low Purine Diet (ED), Gout (ED) Additional Instructions: Likely you have gouty arthritis flare-up as the cause of pain Start taking the medication as prescribed Avoid red meat Follow with your PCP Take ibuprofen 200 mg tablets 2 tablets every 6 hours as needed for pain Prescriptions: New prednisone 20 mg tablet 40 mg PO DAILY Qty: 10 0RF allopurinol 100 mg tablet 50 mg PO .Every other day Qty: 30 0RF Interventions: ED Discharge Assessment Last Done: 01/01/25 19:02 Discharge Date/Time: 01/01/25 19:02 Print Language: Somali (Robert)
[2025-01-01 15:57] LABS: MANUAL DIFF FLAG NO
[2025-01-01 16:07] LABS: Basophils Percent Auto 0.3 % (0-2); Eosinophils Absolute Auto 0.6 X10*3/uL (0.0-0.4); Eosinophils Percent Auto 6.2 % (0-4); Hematocrit 27.9 % (37.0-47.0); Hemoglobin 8.9 g/dl (12.0-16.0); Imm Gran Abs Auto 0.08 X10*3/uL (0.00-0.03); Imm Gran Pct Auto 0.8 % (0.0-0.4); Lymphocytes Absolute Auto 3.1 X10*3/uL (1.2-4.9); Mean Corpuscular HGB Conc 31.9 g/dl (31.0-35.0); Mean Corpuscular Hemoglobin 24.6 pg (27.0-33.0); Mean Corpuscular Volume 77.1 fL (80.0-98.0); Mean Platelet Volume 8.8 fL (9.4-12.3); Monocytes Absolute Auto 0.7 X10*3/uL (0.1-1.2); Monocytes Percent Auto 6.5 % (2-11); Neutrophils Absolute Auto 5.9 x10*3/uL (2.0-8.3); Neutrophils Percent Auto 56.2 % (45-73); Platelet Count 442 X10*3/uL (160-400); Red Blood Count 3.62 X10*6/uL (4.20-5.50); Red Cell Distribution Width 17.4 % (11.0-16.0); White Blood Count 10.4 X10*3/uL (4.8-10.8)
[2025-01-01 16:24] LABS: Alanine Aminotransferase 10 U/L (0-31); Albumin Level 3.3 g/dL (3.5-5.0); Alkaline Phosphatase 75 U/L (39-117); Anion Gap 11 (12-20); Bilirubin Total 0.2 mg/dL (0.0-1.0); Blood Urea Nitrogen 24 mg/dL (9-16); C Reactive Protein 2.01 mg/dL (< or = 0.50); Calcium 8.5 mg/dL (8.4-10.2); Carbon Dioxide 22 mmol/L (22-29); Chloride 110 mmol/L (96-108); Creatinine Clr Calc Pharmacy 18.4; Estimated Glomerular Filt Rate 25; Glucose Random 106 mg/dL (60-115); Lipase 49 U/L (8-78); Potassium 5.1 mmol/L (3.3-5.1); Sodium 138 mmol/L (135-145); Total Protein 7.5 g/dL (6.5-8.0)
[2025-01-01 16:43] LABS: Erythrocyte Sedimentation Rate 75 MM/HR (0-20)
[2025-01-01 17:02] LABS: Aspartate Amino Transferase 24 U/L (5-31); Uric Acid 10.1 mg/dL (2.4-5.7)
[2025-01-01 17:14] VITALS: BP 133/59; PULSE 74; RESP 16; TEMP 36.8; O2SAT 100
[2025-01-01 17:40] LABS: Rheumatoid Factor < 13.0 IU/mL (<15.0)
[2025-01-01] MEDS: predniSONE 20 MG TABLET 40 MG PO (17:48)
[2025-01-01 19:02] VITALS: BP 133/59; PULSE 74; RESP 16; TEMP 36.8; O2SAT 100
[2025-01-01] MEDS: Ibuprofen 400 MG TABLET PO (19:02)
[2025-01-05 12:33] LABS: Anti Nuclear Antibody Pattern Nuclear, Speckled; Anti Nuclear Antibody Screen POSITIVE (NEGATIVE); Anti Nuclear Antibody Titer 1:40 titer
== END 2025-01-01 19:02 | disposition home or self-care (01) ==
PROVIDERS: Physician Assistant; Emergency Provider Internal Medicine
DX: M10.041 Idiopathic gout, right hand (principal); M79.641 Pain in right hand; M79.89 Other specified soft tissue disorders
CPT/HCPCS: 36415; 73130; 80053; 83690; 84550; 85025; 85652; 86038; 86039; 86140; 86431; 99283; 99284

== ENCOUNTER → 2025-01-01 15:27 | Outpatient (BNV) | payer MEDICARE, SELFPAY | PROVIDERS: Visit Provider Radiology Diagnostic Radiology | DX: M79.641 Pain in right hand (principal) | CPT/HCPCS: 73130 ==

== ENCOUNTER 2025-01-07 03:47 | Emergency (ER) | payer OTHER, SELFPAY ==
[2025-01-07 03:52] VITALS: BP 169/82; PULSE 120; O2SAT 100; BMI 35.2
[2025-01-07 04:12] VITALS: BP 186/98; PULSE 106; RESP 20; TEMP 37; O2SAT 96
--- NOTE | 2025-01-07 04:24 | PC.NURSE ---
Pt is a 79 y/o female presents to the ED from home for evaluation of generalized weakness and blood in her urine. [id number] at the bedside. Pt denies any other complaints of pain or discomfort. No trauma, recent illness/fever, and or recent travel. Denies chest pain, abd pain, and shortnes of breath. No known history of kidney stones.
--- NOTE | 2025-01-07 04:36 | PC.NURSE ---
Blood pressure elevated, 184/95. Provider made aware. No complaints reported. No acute distress observed.
[2025-01-07 05:05] LABS: Appearance Urine Clear; Color Urine Yellow; Glucose Urine UA Negative (Negative); Leukocyte Esterase Urine Small (1+) (Negative); Nitrite Urine Negative (Negative); Specific Gravity - Urine <= 1.005 (1.005-1.025); UMIC TRIGGER UACC YES; Urine Blood Negative (Negative); Urine Ketones Negative (Negative); Urine Protein Negative (Neg-Trace)
[2025-01-07 05:14] LABS: Bacteria Urine 4+ (None Seen); Hyaline Casts Urine 0-2 /LPF (0-2); RBC Urine 0-2 /HPF (0-2); Squamous Epithelial Cell Urine 0-2 /HPF (0-2); UACC Culture Trigger YES; WBC Urine 0-5 /HPF (0-5)
--- NOTE | 2025-01-07 05:33 | ED.WEAKNESS ---
HPI - Weakness General Chief complaint: Weakness Stated complaint: weakness, hematuria, tachy IV 22g established Time Seen by Provider: 01/07/25 05:32 Source: patient Mode of arrival: ambulatory Limitations: no limitations History of Present Illness ED Provider: HPI Narrative: Patient is 79 years old comes here with generalized weakness and hematuria off and on noted to have blood pressure of 186/98 pulse rate of 106 afebrile he does have history of hypertension HFpEF patient is seen here on 01/01 for gouty arthritis of the right hand on prednisone till yesterday no respiratory symptoms no fever daughter noticed slight amount of bright red blood in the urine 0 times patient has denied any flank pain your kidney stones Related Data Previous Rx's ?Medication ?Instructions ?Recorded allopurinol 100 mg tablet 50 mg (1/2 x 100 mg) PO .Every 01/01/25 other day #30 tabs prednisone 20 mg tablet 40 mg (2 x 20 mg) PO DAILY #10 tabs 01/01/25 Allergies Allergy/AdvReac Type Severity Reaction Status Date / Time No Known Allergies Allergy Verified 01/07/25 03:55 Review of Systems Review of Systems: Yes all other systems are reviewed and are negative [facility] Social History Social History Use of substances other than those prescribed or required for medical reasons: Yes Advance Directives: No Advance Directives Information Provided: Yes Do you have a plan to hurt others: No Plan Physical Exam Vital Signs: Vital Signs: Last Vital Signs Temp 98.6 F 01/07/25 04:12 Pulse 106 H 01/07/25 04:12 Resp 20 01/07/25 04:12 BP 186/98 H 01/07/25 04:12 Pulse Ox 96 01/07/25 04:12 O2 Del Method Room Air 01/07/25 04:12 BMI result Body Mass Index 35.2 Appearance: Alert. Oriented X3. No acute distress. Eyes: PERRLA, No Nystagmus ENT: Pharynx normal. Oral Mucosa moist Neck: Normal inspection. Neck supple. CVS: Normal heart rate and rhythm. Pulses normal. Respiratory: No respiratory distress. Equal air entry bilateral, no wheezing/rales/rhonchi Abdomen: Soft and nontender. Bowel sounds are present, no mass palpable, no CVA tenderness Skin: Skin warm and dry. Normal skin color. Normal skin turgor. 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 No calf tenderness slight swelling of the right index finger Neuro: Oriented X 3. No motor deficit. No sensory deficit.No cerebellar signs , cranial nerves II-XII intact Medical Decision Making Medical Decision Making [facility] Narrative: Patient is feeling weak etiology not clear labs are pending rule out metabolic etiology patient is signed out to Dr. Cunha pending labs and disposition Differential Diagnosis Differential Diagnoses: The differential diagnosis associated with the presentation includes Metabolic derangement/viral syndrome Lab Data [facility] Lab Attestation statement: I reviewed the patient's lab results. 01/07/25 06:15 01/07/25 06:15 Labs: Lab Results 01/07/25 01/07/25 Range/Units 04:54 06:15 WBC 12.1 H (4.8-10.8) X10*3/uL RBC 3.35 L (4.20-5.50) X10*6/uL Hgb 8.4 L (12.0-16.0) g/dl Hct 24.7 L (37.0-47.0) % MCV 73.7 L (80.0-98.0) fL MCH 25.1 L (27.0-33.0) pg MCHC 34.0 (31.0-35.0) g/dl RDW 16.7 H (11.0-16.0) % Plt Count 380 (160-400) X10*3/uL MPV 8.5 L (9.4-12.3) fL Immature Gran % (Auto) 1.0 H (0.0-0.4) % Neut % (Auto) 60.3 (45-73) % Lymph % (Auto) 30.1 (20-40) % [place] % (Auto) 6.6 (2-11) % Eos % (Auto) 1.9 (0-4) % Baso % (Auto) 0.1 (0-2) % Lymph # (Auto) 3.7 (1.2-4.9) X10*3/uL [place] # (Auto) 0.8 (0.1-1.2) X10*3/uL Eos # (Auto) 0.2 (0.0-0.4) X10*3/uL Baso # (Auto) 0.0 (0.0-0.2) X10*3/uL Abs Immat Gran (auto) 0.12 H (0.00-0.03) X10*3/uL Absolute Neuts (auto) 7.3 (2.0-8.3) x10*3/uL Absolute Nucleated RBC 0.000 (0.0-0.012) X10*3/uL Nucleated RBC % (auto) 0.0 (0.0-0.2) /100WBC Urine Color Yellow Urine Appearance Clear Urine pH 6.0 (5.0-9.0) Ur Specific [place] <= 1.005 (1.005-1.025) Urine Protein Negative (Neg-Trace) mg/dL Urine Glucose (UA) Negative (Negative) mg/dL Urine Ketones Negative (Negative) mg/dL Urine Blood Negative (Negative) Urine Nitrite Negative (Negative) Ur Leukocyte Esterase Small (1+) H (Negative) Urine RBC 0-2 (0-2) /HPF Urine WBC 0-5 (0-5) /HPF Ur Squamous Epith Cells 0-2 (0-2) /HPF Urine Bacteria 4+ (None Seen) Hyaline Casts 0-2 (0-2) /LPF Discharge Plan Discharge Clinical Impression: Weakness Patient Disposition: Still a Patient Prescriptions: No Action prednisone 20 mg tablet 40 mg PO DAILY Qty: 10 0RF allopurinol 100 mg tablet 50 mg PO .Every other day Qty: 30 0RF Print Language: Argentine (Robert)
[2025-01-07 06:24] LABS: Basophils Percent Auto 0.1 % (0-2); Eosinophils Absolute Auto 0.2 X10*3/uL (0.0-0.4); Eosinophils Percent Auto 1.9 % (0-4); Hematocrit 24.7 % (37.0-47.0); Hemoglobin 8.4 g/dl (12.0-16.0); Imm Gran Abs Auto 0.12 X10*3/uL (0.00-0.03); Lymphocytes Absolute Auto 3.7 X10*3/uL (1.2-4.9); Lymphocytes Percent Auto 30.1 % (20-40); MANUAL DIFF FLAG NO; Mean Corpuscular Hemoglobin 25.1 pg (27.0-33.0); Mean Corpuscular Volume 73.7 fL (80.0-98.0); Mean Platelet Volume 8.5 fL (9.4-12.3); Monocytes Absolute Auto 0.8 X10*3/uL (0.1-1.2); Monocytes Percent Auto 6.6 % (2-11); Neutrophils Absolute Auto 7.3 x10*3/uL (2.0-8.3); Neutrophils Percent Auto 60.3 % (45-73); Platelet Count 380 X10*3/uL (160-400); Red Blood Count 3.35 X10*6/uL (4.20-5.50); Red Cell Distribution Width 16.7 % (11.0-16.0); White Blood Count 12.1 X10*3/uL (4.8-10.8)
[2025-01-07 06:51] LABS: Alanine Aminotransferase 60 U/L (0-31); Alkaline Phosphatase 67 U/L (39-117); Anion Gap 13 (12-20); Aspartate Amino Transferase 49 U/L (5-31); Bilirubin Total 0.4 mg/dL (0.0-1.0); Blood Urea Nitrogen 25 mg/dL (9-16); Calcium 8.5 mg/dL (8.4-10.2); Carbon Dioxide 20 mmol/L (22-29); Chloride 110 mmol/L (96-108); Creatinine Clr Calc Pharmacy 29.8; Estimated Glomerular Filt Rate 36; Glucose Random 95 mg/dL (60-115); Potassium 4.6 mmol/L (3.3-5.1); Sodium 138 mmol/L (135-145); Total Protein 6.9 g/dL (6.5-8.0)
[2025-01-07 06:58] VITALS: BP 174/82; PULSE 104; RESP 18; TEMP 36.6; O2SAT 98
[2025-01-07 07:00] LABS: Influenza A PCR NEGATIVE (Negative); Influenza B PCR NEGATIVE (Negative); Resp Syncy Virus RNA Qual PCR NEGATIVE (Negative); SARS COV2 PCR INHOUSE NEGATIVE (Negative)
[2025-01-07 07:10] VITALS: BP 132/37; PULSE 104; RESP 18; O2SAT 97
[2025-01-07 07:45] VITALS: BP 132/37; PULSE 104; RESP 18; TEMP 36.8; O2SAT 97
== END 2025-01-07 07:46 | disposition home or self-care (01) ==
PROVIDERS: Emergency Provider Internal Medicine
DX: N39.0 Urinary tract infection, site not specified (principal); B96.20 Unspecified Escherichia coli [E. coli] as the cause of diseases classified elsewhere; R53.1 Weakness; Z03.818 Encounter for observation for suspected exposure to other biological agents ruled out
CPT/HCPCS: 0241U; 80053; 81001; 85025; 87086; 87088; 87186; 99283; 99284

== ENCOUNTER 2025-05-16 07:34 | Emergency (ER) | payer OTHER, SELFPAY ==
[2025-05-16 07:50] VITALS: BP 139/64; PULSE 75; RESP 16; TEMP 36.4; O2SAT 98; BMI 22.2
--- NOTE | 2025-05-16 07:52 | ED_ITS ---
HPI - Extremity Problem General Chief complaint: Extremity Problem Stated complaint: L Wrist Pain No Injury Time Seen by Provider: 05/16/25 08:59 Source: patient, family, RN notes reviewed and old records reviewed Mode of arrival: ambulatory Limitations: no limitations History of Present Illness ED Provider: Tarik [facility] Narrative: Patient is an 80-year-old Sammarinese speaking female with history of HTN, CKD, HFpEF, gout presenting to the ED with ex-daughter in law complaining of atraumatic left wrist pain since last night. Tried lidocaine patches without relief. Patient reporting severe pain. Denies fevers, chills. Denies weakness, numbness/tingling. Feels similar to prior gout flare. Seeing her PCP on Monday per family. 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 MD Complaint: joint swelling and joint pain Onset (ago): hour(s) Related Data Previous Rx's ?Medication ?Instructions ?Recorded allopurinol 100 mg tablet 50 mg (1/2 x 100 mg) PO .Bia ry 01/01/25 other day #30 tabs prednisone 20 mg tablet 40 mg (2 x 20 mg) PO DAILY # 10 tabs 01/01/25 prednisone 20 mg tablet 40 mg (2 x 20 mg) PO DAILY 5 days 05/16/25 #10 tabs Allergies Allergy/AdvReac Type Severity Reaction Status Date / Time No Known Allergies Allergy Verified 05/16/25 07:51 Review of Systems 2 Review of Systems: As per HPI Yes all other systems are reviewed and are negative Constitutional: Constitutional: Reports as per HPI [facility] Social History Social History Advance Directives: No Advance Directives Information Provided: Yes Physical Exam 2 Vital Signs: Vital Signs: Last Vital Signs Temp 97.6 F 05/16/25 07:50 Pulse 75 05/16/25 07:50 Resp 16 05/16/25 07:50 BP 139/64 05/16/25 07:50 Pulse Ox 98 05/16/25 07:50 O2 Del Method Room Air 05/16/25 07:50 BMI result Body Mass Index 22.2 Vital signs have been reviewed and appear to be correct. Blood pressure normal. Heart rate normal. Respiratory rate normal. Temperature normal. Oxygen saturation normal. Const: General: cooperative and no acute distress O rientation/consciousness: oriented to person, oriented to place, oriented to time and patient oriented x3 HEENT: Head: Yes normocephalic and Yes atraumatic Ears: external ears normal General nose exam: Normal external nose present Face and sinus: Yes face symmetric Mouth: oropharynx normal and moist mucous membranes Throat: Yes uvula midline Eyes: Pupils: Equal, round and reactive pupils present Neck: Neck: Yes normal visual inspection and Yes supple Resp: Effort & Inspection: normal respiratory effort and able to speak in complete sentences Auscultation: clear to auscultation bilaterally Cardio: Rate: regular rate Rhythm: regular rhythm Heart sounds: S1 normal heart sound present and S2 normal heart sound present GI: Palpation (GI): Soft to palpation and nontender Auscultation: n ormoactive bowel sounds : General: Yes no CVA tenderness Back/Spine/Pelvis: Back: no CVA tenderness Skin: General skin exam: elasticity normal and turgor normal Neuro: General: oriented to person, oriented to place, oriented to time, patient oriented x3, moves all extremities, no focal motor deficits and CN's II- XI intact bilaterally Cranial nerves: Yes Equal, round and reactive pupils present Cognition (Neuro): normal cognition Extrem: General: Yes full ROM, Yes no pedal edema and Yes no calf tenderness Left upper extremity: wrist (mild swelling to left wrist, no erythema, full ROM, 2+ radial pulse) and hand Details: neuromotor exam normal, neurosensory exam normal, tenderness Location: of the dorsal hand, vascular exam Details: radial pulse present and normal capillary refill and normal ROM of fingers Psych: Mental Status: mental status grossly normal Affect: normal affect Thought process: Normal thought process present Course Course Course Narrative: 80 yo female with PMH of UTI hx of gout back in January was in both hands per daughter now here with acute onset L wrist pain no trauma no numbness no weakness cannot sleep tried lidocaine patches. At this time labs ordered. did well with prednisone and pain control last time this is a RAPID medical screening exam the rest of the history and physical exam is to be done by the main provider. NATALIE 05/16/25 752am Medical Decision Making Medical Decision Making [facility] Narrative: Patient is an 80-year-old Sammarinese speaking female with history of HTN, CKD, HFpEF, gout presenting to the ED with ex-daughter in law complaining of atraumatic left wrist pain since last night. On exam patient is awake, A+Ox3, VS WNL, afebrile, normal neurological exam without focal deficits, physical exam findings as above. Given reported symptoms and physical exam findings, initial differential includes but is not limited to gout flare, osteoarthritis, strain/sprain. Do not suspect septic arthritis. Labs notable for elevated uric acid, ESR, CRP. Patient and family report good relief with prednisone and ibuprofen during last gout flare. Will treat with same. Advised patient to keep follow-up appointment with PCP on Monday. Return precautions discussed. Patient and [id number]-law verbalized understanding of and agreement with plan. Differential Diagnosis Differential Diagnoses: The differential diagnosis associated with the presentation includes as per [facility] Admission/Observation Consideration of admission/observation: Escalation of care including admission/observation considered Patient would have been admitted to the hospital had their clinical presentation warranted hospital admission. Lab Data [facility] Lab Attestation statement: I reviewed the patient's lab results. as per [facility] 05/16/25 07:59 05/16/25 07:59 Labs: Lab Results 05/16/25 Range/Units 07:59 WBC 12.4 H (4.8-10.8) X10*3/uL RBC 3.43 L (4.20-5.50) X10*6/uL Hgb 7.9 L (12.0-16.0) g/dl Hct 24.5 L (37.0-47.0) % MCV 71.4 L (80.0-98.0) fL MCH 23.0 L (27.0-33.0) pg MCHC 32.2 (31.0-35.0) g/dl RDW 20.3 H (11.0-16.0) % Plt Count 296 (160-400) X10*3/uL MPV 8.7 L (9.4-12.3) fL Immature Gran % (Auto) 1.0 H (0.0-0.4) % Neut % (Auto) 68.7 (45-73) % Lymph % (Auto) 21.2 (20-40) % [place] % (Auto) 5.5 (2-11) % Eos % (Auto) 3.4 (0-4) % Baso % (Auto) 0.2 (0-2) % Lymph # (Auto) 2.6 (1.2-4.9) X10*3/uL [place] # (Auto) 0.7 (0.1-1.2) X10*3/uL Eos # (Auto) 0.4 (0.0-0.4) X10*3/uL Baso # (Auto) 0.0 (0.0-0.2) X10*3/uL Abs Immat Gran (auto) 0.12 H (0.00-0.03) X10*3/uL Absolute Neuts (auto) 8.5 H (2.0-8.3) x10*3/uL Absolute Nucleated RBC 0.000 (0.0-0.012) X10*3/uL Nucleated RBC % (auto) 0.0 (0.0-0.2) /100WBC Sodium 139 (135-145) mmol/L Potassium 4.2 (3.3-5.1) mmol/L Chloride 109 H (96-108) mmol/L Carbon Dioxide 22 (22-29) mmol/L Anion Gap 12 (12-20) BUN 36 H (9-16) mg/dL Creatinine 1.73 H (0.5-1.4) mg/dL Estim Creat Clear Calc 17.1 Estimated GFR 28 Random Glucose 138 H (60-115) mg/dL Uric Acid 7.7 H (2.4-5.7) mg/dL Calcium 8.0 L (8.4-10.2) mg/dL C-Reactive Protein 2.95 H (< or = 0.50) mg/dL Independent Historian Clinical information obtained from an independent historian. History obtained from or confirmed by: Other External Record Review External record reviewed: Inpatient record, Office record and Outpatient record Prescription Management I considered prescription management with: Pain Medication and Other Discharge Plan Discharge Clinical Impression: Gout flare Qualifiers: Gout site: wrist Gout etiology: unspecified cause Laterality: left Qualified Code(s): M10.9 - Gout, unspecified Patient Disposition: Home, Self-Care Instructions: Low Purine Diet (ED), Gout (ED) Additional Instructions: You are being treated for a gout flare with prednisone to decrease inflammation. You can also take 400mg of ibuprofen every 6 hours as needed for pain. Keep the appointment with your PCP on Monday. Return to the emergency department if you develop worsening redness, swelling, new weakness, numbness, tingling, change of color in your hand, fever or any other new or concerning symptoms. Prescriptions: New prednisone 20 mg tablet 40 mg PO DAILY 5 Days Qty: 10 0RF No Action prednisone 20 mg tablet 40 mg PO DAILY Qty: 10 0RF allopurinol 100 mg tablet 50 mg PO .Every other day Qty: 30 0RF Print Language: Sammarinese (Robert)
[2025-05-16 08:04] LABS: MANUAL DIFF FLAG NO
--- OUTSIDE RECORDS SUMMARY | 2025-05-16 08:07 | XMS_ITS | Encounter Summary ---
Author Organization [facility], Address [address] [place] [address] Phone Care Team Providers Care Insole Taper Name Role Phone Bridget Paz NP Primary Care Provider [phone] Encounter Details Date Type Department Care Team (Late st Contact Info) Description 11/06/2023 Documentation Only [facility], [address] [place] [address] [place], [place] [address] [place] [id number] Social History Tobacco Use Types Packs/Day Years Used Date Smoking Tobacco: Never Smokeless Tobacco: Never Alcohol Use Standard Drinks/Week Comments Never 0 (1 standard drink = 0.6 oz pur e alcohol) Comments Unknown Sex and Gender Information Value Date Recorded Sex Assigned at Not on file Legal Sex Female 3:50 PM EDT Gender Identity Not on file Sexual Orientation Not on file documented as of this encounter Plan of Treatment Not on file documented as of this encounter Visit Diagnoses Not on filedocumented in this encounter Care Teams Insole Taper Relationship Specialty Start Date End Date Bridget Paz NP [address] [place] [address] PCP - General Nurse Practitioner 03/22/22 documented as of this encounter
[2025-05-16 08:10] LABS: Hematocrit 24.5 % (37.0-47.0); Hemoglobin 7.9 g/dl (12.0-16.0); Imm Gran Abs Auto 0.12 X10*3/uL (0.00-0.03); Imm Gran Pct Auto 1.0 % (0.0-0.4); Lymphocytes Absolute Auto 2.6 X10*3/uL (1.2-4.9); Mean Corpuscular HGB Conc 32.2 g/dl (31.0-35.0); Mean Corpuscular Hemoglobin 23.0 pg (27.0-33.0); Mean Corpuscular Volume 71.4 fL (80.0-98.0); NRBC Abs Auto 0.000 X10*3/uL (0.0-0.012); NRBC Pct Auto 0.0 /100WBC (0.0-0.2); Platelet Count 296 X10*3/uL (160-400); Red Blood Count 3.43 X10*6/uL (4.20-5.50); White Blood Count 12.4 X10*3/uL (4.8-10.8)
[2025-05-16 08:18] LABS: Anion Gap 12 (12-20); Blood Urea Nitrogen 36 mg/dL (9-16); Calcium 8.0 mg/dL (8.4-10.2); Carbon Dioxide 22 mmol/L (22-29); Chloride 109 mmol/L (96-108); Creatinine Clr Calc Pharmacy 17.1; Estimated Glomerular Filt Rate 28; Potassium 4.2 mmol/L (3.3-5.1); Sodium 139 mmol/L (135-145); Uric Acid 7.7 mg/dL (2.4-5.7)
[2025-05-16 09:39] VITALS: BP 137/72; PULSE 81; RESP 16; TEMP 36.8; O2SAT 98
== END 2025-05-16 10:01 | disposition home or self-care (01) ==
PROVIDERS: Emergency Medicine; Emergency Provider Emergency Medicine Emergency Medical Services; PCP Family Medicine
DX: M10.9 Gout, unspecified (principal); M25.532 Pain in left wrist; I12.9 Hypertensive chronic kidney disease with stage 1 through stage 4 chronic kidney disease, or unspecified chronic kidney disease; N18.9 Chronic kidney disease, unspecified; I13.0 Hypertensive heart and chronic kidney disease with heart failure and stage 1 through stage 4 chronic kidney disease, or unspecified chronic kidney disease; I50.30 Unspecified diastolic (congestive) heart failure
CPT/HCPCS: 36415; 80048; 84550; 85025; 85652; 86140; 99282; 99283

== ENCOUNTER 2025-05-24 14:41 | Inpatient (IN) | payer OTHER, SELFPAY ==
--- NOTE | 2025-05-24 | ECG_ITS ---
Test Reason : WEAKNESS Blood Pressure : */* mmHG Vent. Rate : 97 BPM Atrial Rate : 97 BPM P-R Int : 176 ms QRS Dur : 86 ms QT Int : 348 ms P-R-T Axes : 50 3 48 degrees QTcB Int : 441 ms Normal sinus rhythm Normal ECG When compared with ECG of 10-Apr-2024 17:07, No significant change was found Referred By: Adrian Polo Electronically Signed By: Eric James
--- NOTE | ~2025-05-24 | CT_ITS ---
CLINICAL HISTORY: SOB, tachy,tachypneic, weakness CT angiography chest with contrast. 3D Postprocessing. Comparison: CR/SR - XR CHEST 1 VIEW - 08/13/24 09:29 EST Findings: The heart size is normal. RV/LV ratio is normal. Unremarkable thoracic aorta and great vessels. No aneurysm. No pulmonary artery filling defects. The visualized thyroid and mediastinum are unremarkable. Mild diffuse interstitial prominence in both lungs as well as patchy areas of ground-glass opacities in both lungs. The visualized upper abdomen is unremarkable. No acute fractures. IMPRESSION: 1. No pulmonary embolus. No evidence of acute aortic syndrome. 2. Mild diffuse interstitial prominence in both lungs as well as patchy ground-glass opacities may represent mild pulmonary edema/fluid overload. This document has been electronically signed by: Tiki Marie MD on 05/24/2025 18:30:02
[2025-05-24 14:57] VITALS: BP 171/83; BP 178/79; PULSE 101; PULSE 103; RESP 22; TEMP 37.7; O2SAT 98; O2SAT 99; BMI 26.2
--- NOTE | 2025-05-24 15:01 | ED.GENADULT ---
HPI - General Adult General Chief complaint: Weakness Stated complaint: GENERALIZED WEAKNESS Time Seen by Provider: 05/24/25 14:58 Source: patient, family (Yrcotvvh-oy-iat, son at bedside corroborating history), EMS and RN notes reviewed Mode of arrival: EMS Limitations: language barrier (Lebanese speaking, dlsvnwzb-ji-jsn acting as sign language interpreter) History of Present Illness ED Provider: Melani Campbell PA-C HPI narrative: 80-year-old Lebanese speaking female with medical history of gout, HTN, CKD, HFpEF, accompanied by ex lutyutzp-tf-ypg presents to the ED by EMS due to increased confusion, weakness, dizziness, SOB that began this morning after patient woke up. Rfyjcqxp-xx-rvb states she was trying to get off of the toilet this morning and was unable to due to confusion, weakness of her legs, and dizziness- dizziness now resolved. Qjpzupod-mp-qxl and patient are somewhat poor historians, both unsure if patient is on anticoagulation therapy or not. Ziacxoei-jh-rtl states patient was seen here in the department on 05/16 for left hand gout flare and was prescribed prednisone. Left hand still mildly swollen however guvwgzaa-xb-ckc states hands looks much better than when she initially came in. Additionally iqxbnybs-pk-qst states patient has been having increased urinary frequency and painful urination over the last 3 days. Qyryhuwd-ya-fan states patient was seen by her primary care provider on 05/19 and all blood work was WNL. Patient states she took Tylenol around 1:00 p.m. prior to arrival. Denies sick contacts, recent travel, nausea, vomiting, headache complaint: weakness, dysuria Related Data Previous Rx's ?Medication ?Instructions ?Recorded allopurinol 100 mg tablet 50 mg (1/2 x 100 mg) PO .Every 01/01/25 other day #30 tabs prednisone 20 mg tablet 40 mg (2 x 20 mg) PO DAILY #10 tabs 01/01/25 prednisone 20 mg tablet 40 mg (2 x 20 mg) PO DAILY 5 days 05/16/25 #10 tabs Allergies Allergy/AdvReac Type Severity Reaction Status Date / Time No Known Allergies Allergy Verified 05/24/25 15:08 [facility] Social History Social History Smoked in Last 30 Days: No Use of substances other than those prescribed or required for medical reasons: No Advance Directives: No Advance Directives Information Provided: No Do you have a plan to hurt others: No Plan Physical Exam ED Vital Signs: Vital Signs - 24 hr 05/24/25 14:57 05/24/25 15:16 05/24/25 16:59 Temperature 99.9 F 99.1 F 97.9 F Pulse Rate 101 H 102 H Respiratory Rate 22 H 20 Blood Pressure 171/83 H 166/53 H Pulse Oximetry 99 96 Oxygen Delivery Method Room Air Room Air 05/24/25 18:34 Temperature 98.5 F Pulse Rate 99 Respiratory Rate 18 Blood Pressure 167/75 H Pulse Oximetry 100 Oxygen Delivery Method Room Air BMI result Body Mass Index 26.2 Medications Administered Discontinued Medications Generic Name Dose Route Start Last Admin Trade Name Freq PRN Reason Stop Dose Admin Ceftriaxone Sodium 1 gm 05/24/25 17:51 05/24/25 18:07 Ceftriaxone Sodium 1 Gm Vial IVPUSH 05/24/25 17:52 1 gm ONCE ONE Administration Lactated Ringer's 500 mls @ 999 mls/hr 05/24/25 18:00 05/24/25 18:07 Lr IV 05/24/25 18:30 999 mls/hr .Q31M [place]ER[place] Administration Iohexol 65 ml 05/24/25 17:08 05/24/25 17:13 Iohexol 350 Mg/Ml 100 Ml Infus..Btl IV 05/24/25 17:09 65 ml ONCE ONE Administration Medical Decision Making Medical Decision Making MDM Narrative: 80-year-old Lebanese speaking female with medical history of gout, HTN, CKD, HFpEF, accompanied by ex kxxbhxrp-li-dbq presents to the ED by EMS due to increased confusion, weakness, dizziness, SOB that began this morning after patient woke up. Bhoozegy-ge-zck states she was trying to get off of the toilet this morning and was unable to due to confusion, weakness of her legs, and dizziness- dizziness now resolved. Dzqfkewj-er-rge and patient are somewhat poor historians, both unsure if patient is on anticoagulation therapy or not. Cbgqkbuz-az-cfs states patient was seen here in the department on 05/16 for left hand gout flare and was prescribed prednisone. Left hand still mildly swollen however jxluyucr-gr-kga states hands looks much better than when she initially came in. Additionally qanceygl-vz-pyd states patient has been having increased urinary frequency and painful urination over the last 3 days. Cljxxtjj-ce-pgc states patient was seen by her primary care provider on 05/19 and all blood work was WNL. Patient states she took Tylenol around 1:00 p.m. prior to arrival. Course 17:51- EKG with normal sinus rhythm, no ST-elevation/depression, T-wave abnormality initial troponin 15, 2nd troponin 15.6- less likely ACS Labs reveal leukocytosis of 15.1 however patient just finished course of 5 day prednisone for gout, WBC could be elevated due to this reason Microcytic anemia with HGB 7.6, HCT 23.8. Patient with blood work on 05/16 showed HGB of 7.9, HCT of 24.5, not a significant drop in lab values. Thrombocytosis of 433, however this may be elevated due to some sort of infectious process. BNP mildly elevated at 111. VBG reveals metabolic alkalosis with a pH of 7.50, pCO2 of 34, and HC03 of 27 however this may be elevated due to patient's recent steroid course. At 5:51 p.m. on 05/24/2025 I suspected sepsis due to tachycardic rate of 102 beats per minute, WBC count of 15.1, lactic acid WNL. UA with 3+ leukocyte esterase, 21-50 urine WBCs, no urine bacteria, 0-2 squamous epithelial cells. Due to patient having dysuria, increased urinary frequency I medicated with 1 g ceftriaxone and 500 mL of IV fluids. Patient does not meet sepsis protocol of fluid bolus at this time. 19:53- CTA chest without cardiomegaly, evidence of pulmonary embolism, however there is interstitial prominence in both lungs and patchy ground-glass opacities of possible mild pulmonary edema/fluid overload. I spoke with Dr. Wali Gambino who will admit patient to medicine for further management and intervention. Differential Diagnosis Differential Diagnoses: The differential diagnosis associated with the presentation includes ACS Pulmonary embolism Electrolyte abnormality UTI Pneumonia Viral illness Admission/Observation Consideration of admission/observation: Escalation of care including admission/observation considered Lab Data MDM Lab Attestation statement: I reviewed the patient's lab results. 05/24/25 15:38 05/24/25 15:38 Labs: Lab Results 08/16/25 08/16/25 08/16/25 Range/Units 15:38 15:45 15:46 WBC 15.1 H (4.8-10.8) X10*3/uL RBC 3.38 L (4.20-5.50) X10*6/uL Hgb 7.6 L (12.0-16.0) g/dl Hct 23.8 L (37.0-47.0) % MCV 70.4 L (80.0-98.0) fL MCH 22.5 L (27.0-33.0) pg MCHC 31.9 (31.0-35.0) g/dl RDW 19.8 H (11.0-16.0) % Plt Count 433 H D (160-400) X10*3/uL MPV 8.3 L (9.4-12.3) fL Immature Gran % (Auto) 3.7 H (0.0-0.4) % Neut % (Auto) 76.7 H (45-73) % Lymph % (Auto) 17.5 L (20-40) % [place] % (Auto) 1.9 L (2-11) % Eos % (Auto) 0.1 (0-4) % Baso % (Auto) 0.1 (0-2) % Lymph # (Auto) 2.6 (1.2-4.9) X10*3/uL [place] # (Auto) 0.3 (0.1-1.2) X10*3/uL Eos # (Auto) 0.0 (0.0-0.4) X10*3/uL Baso # (Auto) 0.0 (0.0-0.2) X10*3/uL Abs Immat Gran (auto) 0.56 H (0.00-0.03) X10*3/uL Absolute Neuts (auto) 11.6 H (2.0-8.3) x10*3/uL Absolute Nucleated RBC 0.070 H (0.0-0.012) X10*3/uL Nucleated RBC % (auto) 0.5 H (0.0-0.2) /100WBC VBG pH (7.32-7.43) VBG pCO2 mmHg VBG pO2 mmHg VBG HCO3 (22-26) mmol/L VBG O2 Saturation VBG Base Excess mmol/L Sodium 139 (135-145) mmol/L Potassium 5.1 D (3.3-5.1) mmol/L Chloride 107 (96-108) mmol/L Carbon Dioxide 23 (22-29) mmol/L Anion Gap 14 (12-20) BUN 33 H (9-16) mg/dL Creatinine 1.33 (0.5-1.4) mg/dL Estim Creat Clear Calc 29.9 Estimated GFR 38 Random Glucose 114 (60-115) mg/dL Lactic Acid 1.7 (0.5-2.0) mmol/L Calcium 8.5 D (8.4-10.2) mg/dL Magnesium 2.2 (1.6-2.6) mg/dL Total Bilirubin 0.2 (0.0-1.0) mg/dL AST 30 (5-31) U/L ALT 28 (0-31) U/L Alkaline Phosphatase 60 (39-117) U/L Troponin I High Sens 15.0 (<3.5-17.0) ng/L B-Natriuretic Peptide 111 H (<100) pg/mL Total Protein 6.6 (6.5-8.0) g/dL Albumin 3.4 L (3.5-5.0) g/dL Urine Color Urine Appearance Urine pH (5.0-9.0) Ur Specific [place] (1.005-1.025) Urine Protein (Neg-Trace) mg/dL Urine Glucose (UA) (Negative) mg/dL Urine Ketones (Negative) mg/dL Urine Blood (Negative) Urine Nitrite (Negative) Ur Leukocyte Esterase (Negative) Urine RBC (0-2) /HPF Urine WBC (0-5) /HPF Ur Squamous Epith Cells (0-2) /HPF Urine Bacteria (None Seen) Hyaline Casts (0-2) /LPF Influenza Type A (PCR) NEGATIVE (Negative) Influenza Type B (PCR) NEGATIVE (Negative) RSV RNA Qual (PCR) NEGATIVE (Negative) SARS-CoV-2 RNA (RT-PCR) NEGATIVE (Negative) 05/24/25 05/24/25 05/24/25 Range/Units 15:54 16:32 18:34 WBC (4.8-10.8) X10*3/uL RBC (4.20-5.50) X10*6/uL Hgb (12.0-16.0) g/dl Hct (37.0-47.0) % MCV (80.0-98.0) fL MCH (27.0-33.0) pg MCHC (31.0-35.0) g/dl RDW (11.0-16.0) % Plt Count (160-400) X10*3/uL MPV (9.4-12.3) fL Immature Gran % (Auto) (0.0-0.4) % Neut % (Auto) (45-73) % Lymph % (Auto) (20-40) % [place] % (Auto) (2-11) % Eos % (Auto) (0-4) % Baso % (Auto) (0-2) % Lymph # (Auto) (1.2-4.9) X10*3/uL [place] # (Auto) (0.1-1.2) X10*3/uL Eos # (Auto) (0.0-0.4) X10*3/uL Baso # (Auto) (0.0-0.2) X10*3/uL Abs Immat Gran (auto) (0.00-0.03) X10*3/uL Absolute Neuts (auto) (2.0-8.3) x10*3/uL Absolute Nucleated RBC (0.0-0.012) X10*3/uL Nucleated RBC % (auto) (0.0-0.2) /100WBC VBG pH 7.50 H (7.32-7.43) VBG pCO2 34 mmHg VBG pO2 123 mmHg VBG HCO3 27 H (22-26) mmol/L VBG O2 Saturation TNP VBG Base Excess 4.4 mmol/L Sodium (135-145) mmol/L Potassium (3.3-5.1) mmol/L Chloride (96-108) mmol/L Carbon Dioxide (22-29) mmol/L Anion Gap (12-20) BUN (9-16) mg/dL Creatinine (0.5-1.4) mg/dL Estim Creat Clear Calc Estimated GFR Random Glucose (60-115) mg/dL Lactic Acid (0.5-2.0) mmol/L Calcium (8.4-10.2) mg/dL Magnesium (1.6-2.6) mg/dL Total Bilirubin (0.0-1.0) mg/dL AST (5-31) U/L ALT (0-31) U/L Alkaline Phosphatase (39-117) U/L Troponin I High Sens 15.6 (<3.5-17.0) ng/L B-Natriuretic Peptide (<100) pg/mL Total Protein (6.5-8.0) g/dL Albumin (3.5-5.0) g/dL Urine Color Yellow Urine Appearance Clear Urine pH 6.0 (5.0-9.0) Ur Specific [place] 1.015 (1.005-1.025) Urine Protein Negative (Neg-Trace) mg/dL Urine Glucose (UA) Negative (Negative) mg/dL Urine Ketones Negative (Negative) mg/dL Urine Blood Negative (Negative) Urine Nitrite Negative (Negative) Ur Leukocyte Esterase Large (3+) H (Negative) Urine RBC 0-2 (0-2) /HPF Urine WBC 21-50 H (0-5) /HPF Ur Squamous Epith Cells 0-2 (0-2) /HPF Urine Bacteria None Seen (None Seen) Hyaline Casts 0-2 (0-2) /LPF Influenza Type A (PCR) (Negative) Influenza Type B (PCR) (Negative) RSV RNA Qual (PCR) (Negative) SARS-CoV-2 RNA (RT-PCR) (Negative) Independent Interpretation I performed an independent interpretation of an: EKG Interpretation: I personally interpreted the EKG which reveals normal sinus rhythm, no ST-elevation/depression, T-wave abnormality Vent. Rate : 97 BPM Atrial Rate : 97 BPM P-R Int : 176 ms QRS Dur : 86 ms QT Int : 348 ms P-R-T Axes : 50 3 48 degrees QTcB Int : 441 ms Normal sinus rhythm Normal ECG When compared with ECG of 10-Apr-2024 17:07, No significant change was found Radiology Impression Discussion of test interpretation with radiology: I have reviewed the radiologist's reading. Radiologist Impression: CTA chest Findings: The heart size is normal. RV/LV ratio is normal. Unremarkable thoracic aorta and great vessels. No aneurysm. No pulmonary artery filling defects. The visualized thyroid and mediastinum are unremarkable. Mild diffuse interstitial prominence in both lungs as well as patchy areas of ground-glass opacities in both lungs. The visualized upper abdomen is unremarkable. No acute fractures. IMPRESSION: 1. No pulmonary embolus. No evidence of acute aortic syndrome. 2. Mild diffuse interstitial prominence in both lungs as well as patchy ground-glass opacities may represent mild pulmonary edema/fluid overload. This document has been electronically signed by: Tiki Marie MD on 05/24/2025 18:30:02 Dictated By: Tiki Marie MD Signed By: <Electronically signed by Tiki Marie MD in OV> 05/24/25 1830 Independent Historian Clinical information obtained from an independent historian. History obtained from or confirmed by: Other (Yqentich-ar-jug, son at bedside corroborating history) External Record Review External record reviewed: Inpatient record, Office record and Outpatient record Chronic Conditions Patient?s care impacted by: Hypertension and Other (HfPef) Discharge Plan Discharge Patient Disposition: Admitted As Inpatient Print Language: Jamaican (Robert)
[2025-05-24 15:16] VITALS: TEMP 37.3
--- NOTE | 2025-05-24 15:17 | PC.NURSE ---
Pt/family poor historians; pt c/o R shoulder pain; denies CP/SOB/urinary/N/V/D sx's; just feels weak and cold
[2025-05-24 15:42] LABS: MANUAL DIFF FLAG NO
[2025-05-24 15:44] LABS: Hematocrit 23.8 % (37.0-47.0); Hemoglobin 7.6 g/dl (12.0-16.0); Imm Gran Abs Auto 0.56 X10*3/uL (0.00-0.03); Imm Gran Pct Auto 3.7 % (0.0-0.4); Lymphocytes Absolute Auto 2.6 X10*3/uL (1.2-4.9); Mean Corpuscular HGB Conc 31.9 g/dl (31.0-35.0); Mean Corpuscular Hemoglobin 22.5 pg (27.0-33.0); Mean Corpuscular Volume 70.4 fL (80.0-98.0); NRBC Abs Auto 0.070 X10*3/uL (0.0-0.012); NRBC Pct Auto 0.5 /100WBC (0.0-0.2); Platelet Count 433 X10*3/uL (160-400); Red Blood Count 3.38 X10*6/uL (4.20-5.50); White Blood Count 15.1 X10*3/uL (4.8-10.8)
[2025-05-24 15:57] LABS: Venous Blood Gas Refer to POC result
[2025-05-24 15:58] LABS: VBG HCO3 27 mmol/L (22-26)
[2025-05-24 16:02] LABS: Alanine Aminotransferase 28 U/L (0-31); Albumin Level 3.4 g/dL (3.5-5.0); Alkaline Phosphatase 60 U/L (39-117); Anion Gap 14 (12-20); Aspartate Amino Transferase 30 U/L (5-31); Blood Urea Nitrogen 33 mg/dL (9-16); Calcium 8.5 mg/dL (8.4-10.2); Carbon Dioxide 23 mmol/L (22-29); Chloride 107 mmol/L (96-108); Creatinine Clr Calc Pharmacy 29.9; Estimated Glomerular Filt Rate 38; Magnesium 2.2 mg/dL (1.6-2.6); Potassium 5.1 mmol/L (3.3-5.1); Sodium 139 mmol/L (135-145); Total Protein 6.6 g/dL (6.5-8.0)
[2025-05-24 16:10] LABS: Troponin-I High Sensitivity 15.0 ng/L (<3.5-17.0)
[2025-05-24 16:20] LABS: B Type Natriuretic Peptide 111 pg/mL (<100)
[2025-05-24 16:23] LABS: Resp Syncy Virus RNA Qual PCR NEGATIVE (Negative); SARS COV2 PCR INHOUSE NEGATIVE (Negative)
--- OUTSIDE RECORDS SUMMARY | 2025-05-24 16:37 | XMS_ITS | Encounter Summary ---
Author Organization [facility], Address [address] [place] [address] Phone Care Team Providers Care Public Works Inspector Name Role Phone Bridget Paz NP Primary Care Provider [phone] Encounter Details Date Type Department Care Team (Late st Contact Info) Description 11/06/2023 Documentation Only [facility], [address] [place] [address] [place], [place] [address] [place] [id number] Social History Tobacco Use Types Packs/Day Years [...] on filedocumented in this encounter Care Teams Public Works Inspector Relationship Specialty Start Date End Date Bridget Paz NP [address] [place] [address] PCP - General Nurse Practitioner 03/22/22 documented as of this encounter
[2025-05-24 16:41] LABS: Appearance Urine Clear; Glucose Urine UA Negative (Negative); PH 6.0 (5.0-9.0); Specific Gravity - Urine 1.015 (1.005-1.025); UMIC TRIGGER UACC YES
[2025-05-24 16:55] LABS: UACC Culture Trigger YES
[2025-05-24 16:59] VITALS: BP 166/53; PULSE 102; RESP 20; TEMP 36.6; O2SAT 96
[2025-05-24] MEDS: iohexoL 350 MG/ML 100 ML INFUS..BTL 65 ML IV (17:13)
[2025-05-24] MEDS: Lactated Ringers 500 ML 999 ML IV (18:07)
[2025-05-24 18:34] VITALS: BP 167/75; PULSE 99; RESP 18; TEMP 36.9; O2SAT 100
[2025-05-24 19:00] LABS: Troponin-I High Sensitivity 15.6 ng/L (<3.5-17.0)
--- NOTE | 2025-05-25 01:10 | PM.IMHP ---
History of Present Illness Date of Service: 05/25/25 Attending physician on admission: Ivanna Gambino Chief Complaint: Weakness Patient is an 80-year-old Tongan speaking female with a past medical history significant for gout, hypertension, CKD, HFpEF, and GERD, who presented to the ED due to weakness, dizziness, shortness of breath that began yesterday morning after waking up. She has had a few days of urinary frequency and dysuria. Her xtiytlwo-wl-inp states that she was unable to get off the toilet this morning due to weakness in her legs and dizziness, which have all resolved. She was recently here on 05/16 and was treated for left hand gout, on prednisone which she just completed. The patient denies any shortness of breath, cough or dyspnea. No abdominal pain or chest pain. Review of Systems Constitutional: Constitutional: Denies chills, Reports fatigue, Denies fever(s) and Denies headache(s) Eyes: Eyes: Denies change in vision ENT: Denies headache(s), Denies nasal congestion and Denies sore throat Cardiovascular: Cardiovascular: Denies chest pain, Denies rapid heart rate, Denies leg edema, Denies lightheadedness and Denies dyspnea Respiratory: Respiratory: Denies chest congestion, Denies cough, Denies dyspnea and Denies wheezing Gastrointestinal: Gastrointestinal: Denies abdominal pain, Denies diarrhea, Denies nausea and Denies vomiting Genitourinary: Genitourinary: Reports as per HPI and Reports difficulty voiding Musculoskeletal: Musculoskeletal: Denies myalgias Integumentary/Breasts: Skin/Breast: Denies rash Neurologic: Denies confusion and Denies headache(s) Psychiatric: Psychiatric: Denies confusion Endocrine: Endocrine: Reports fatigue Hematologic/Lymphatic: Hematologic/Lymphatic: Denies easy bleeding and Denies easy bruising Allergic/Immunologic: Allergic/Immunologic: Denies wheezing [facility] Medical History (Updated 05/25/25 @ 01:32 by Brittany Edwards PA-C) (HFpEF) heart failure with preserved ejection fraction CKD (chronic kidney disease) stage 3, GFR 30-59 ml/min Gout HTN (hypertension) Social History Smoked in Last 30 Days: No Use of substances other than those prescribed or required for medical reasons: No Advance Directives: No Advance Directives Information Provided: No Do you have a plan to hurt others: No Plan Narrative: No smoking, alcohol or drug use Meds Allergies Allergy/AdvReac Type Severity Reaction Status Date / Time No Known Allergies Allergy Verified 05/24/25 15:08 Active Medications: Current Medications Acetaminophen (Acetaminophen 325 Mg Tablet) 975 mg PO Q6H PRN PRN Reason: Pain, Mild 1-3,fever,headache Calcium Carbonate (Calcium Carbonate 750 Mg Tab.Chew) 750 mg PO Q4H PRN PRN Reason: Heartburn Ceftriaxone Sodium (Ceftriaxone Sodium 2 Gm Vial) 2 gm IVPUSH Q24H [place] Magnesium Hydroxide (Milk Of Magnesia 30 Ml Oral.Susp) 30 ml PO DAILY PRN PRN Reason: Constipation Melatonin (Melatonin 3 Mg Tablet) 6 mg PO BEDTIME PRN PRN Reason: Insomnia Ondansetron HCl (Ondansetron Hcl 4 Mg/2 Ml Vial) 4 mg IVPUSH Q8H PRN PRN Reason: Nausea and Vomiting Oxycodone HCl (Oxycodone Hcl Immed Release 5 Mg Tablet) 5 mg PO Q6H PRN PRN Reason: Pain, Severe (Pain Scale 7-10) Sodium Chloride (0.9 % Sodium Chloride Flush 3 Ml Syringe) 3 ml IVFLUSH QSHIFT [place] Tramadol HCl (Tramadol Hcl 50 Mg Tablet) 50 mg PO Q6H PRN PRN Reason: Pain, Moderate(Pain Scale 4-6) Physical Exam Vital Signs and Narrative: Vital Signs: Last Vital Signs Temp 98.5 F 05/24/25 18:34 Pulse 99 05/24/25 18:34 Resp 18 05/24/25 18:34 BP 167/75 H 05/24/25 18:34 Pulse Ox 100 05/24/25 18:34 O2 Del Method Room Air 05/24/25 18:34 BMI result Body Mass Index 26.2 General: AOx3, no acute distress, seen with daughter bedside who translates, they do not want to use diesel automotive technician iPad Resp: CTA bilaterally CVS: S1, S2, RRR GI: +BS, NT, no distention Skin: Warm, dry Neuro: Cranial nerves II-XII grossly intact bilaterally. Motor grossly intact bilaterally Extremities: No pitting edema Psych: Appropriate affect Const: General: No confusion Orientation/consciousness: No confusion Neuro: General: No confusion Results Labs 05/25/25 01:09 05/24/25 15:38 Labs: Laboratory Results - last 24 hr 05/24/25 05/24/25 05/24/25 15:38 15:45 15:46 MCV 70.4 L MCH 22.5 L MCHC 31.9 RDW 19.8 H Plt Count 433 H D MPV 8.3 L Immature Gran % (Auto) 3.7 H Neut % (Auto) 76.7 H Lymph % (Auto) 17.5 L [place] % (Auto) 1.9 L Eos % (Auto) 0.1 Baso % (Auto) 0.1 Lymph # (Auto) 2.6 [place] # (Auto) 0.3 Eos # (Auto) 0.0 Baso # (Auto) 0.0 Abs Immat Gran (auto) 0.56 H Absolute Neuts (auto) 11.6 H Absolute Nucleated RBC 0.070 H Nucleated RBC % (auto) 0.5 H VBG pH VBG pCO2 VBG pO2 VBG HCO3 VBG O2 Saturation VBG Base Excess Anion Gap 14 Estim Creat Clear Calc 29.9 Estimated GFR 38 Random Glucose 114 Lactic Acid 1.7 Calcium 8.5 D Magnesium 2.2 Total Bilirubin 0.2 AST 30 ALT 28 Alkaline Phosphatase 60 B-Natriuretic Peptide 111 H Total Protein 6.6 Albumin 3.4 L Urine Color Urine Appearance Urine pH Ur Specific [place] Urine Protein Urine Glucose (UA) Urine Ketones Urine Blood Urine Nitrite Ur Leukocyte Esterase Urine RBC Urine WBC Ur Squamous Epith Cells Urine Bacteria Hyaline Casts Influenza Type A (PCR) NEGATIVE Influenza Type B (PCR) NEGATIVE RSV RNA Qual (PCR) NEGATIVE SARS-CoV-2 RNA (RT-PCR) NEGATIVE 05/24/25 05/24/25 15:54 16:32 MCV MCH MCHC RDW Plt Count MPV Immature Gran % (Auto) Neut % (Auto) Lymph % (Auto) [place] % (Auto) Eos % (Auto) Baso % (Auto) Lymph # (Auto) [place] # (Auto) Eos # (Auto) Baso # (Auto) Abs Immat Gran (auto) Absolute Neuts (auto) Absolute Nucleated RBC Nucleated RBC % (auto) VBG pH 7.50 H VBG pCO2 34 VBG pO2 123 VBG HCO3 27 H VBG O2 Saturation TNP VBG Base Excess 4.4 Anion Gap Estim Creat Clear Calc Estimated GFR Random Glucose Lactic Acid Calcium Magnesium Total Bilirubin AST ALT Alkaline Phosphatase B-Natriuretic Peptide Total Protein Albumin Urine Color Yellow Urine Appearance Clear Urine pH 6.0 Ur Specific [place] 1.015 Urine Protein Negative Urine Glucose (UA) Negative Urine Ketones Negative Urine Blood Negative Urine Nitrite Negative Ur Leukocyte Esterase Large (3+) H Urine RBC 0-2 Urine WBC 21-50 H Ur Squamous Epith Cells 0-2 Urine Bacteria None Seen Hyaline Casts 0-2 Influenza Type A (PCR) Influenza Type B (PCR) RSV RNA Qual (PCR) SARS-CoV-2 RNA (RT-PCR) Assessment and Plan (1) Sepsis: Status: Acute (2) UTI (urinary tract infection): Status: Acute (3) Microcytic anemia: Status: Acute (4) CKD (chronic kidney disease) stage 3, GFR 30-59 ml/min: Status: Acute Plan Patient is an 80-year-old Tongan speaking female with a past medical history significant for gout, hypertension, CKD, HFpEF, and GERD, who presented to the ED due to weakness, dizziness, shortness of breath that began yesterday morning after waking up. Sepsis secondary to UTI - WBC 15.1, tachycardic and tachypneic, lactic acid normal, blood cultures x2 pending, not severe sepsis - UA positive, culture pending - EKG with sinus rhythm - troponin 15, 15.6 on repeat - COVID/flu/RSV negative - chest CTA negative for pulmonary embolus. Mild diffuse interstitial prominence in both lungs as well as patchy ground-glass opacities may represent mild pulmonary edema/fluid overload (patient asymptomatic) - given 500 mL LR in ED, hold from further fluids as patient is normotensive and has CHF - ceftriaxone - monitor CBC and BMP Microcytic anemia - hemoglobin 7.6, hematocrit 23.0, 7.3/22.5 on repeat - no obvious bleeding source - check iron panel, ferritin, retic count, B12, folate and FOBT - type and screen - blood transfusion consent ready - hold on blood trasnfusion as pt is still above transfusion threshold at this time - GI consult - monitor H+H Pulmonary edema/fluid overload on CT - patient asymptomatic - lungs clear, no pitting edema - continue to monitor - continue home Lasix Gout - recovered from recent flare Hypertension - continue lisinopril and metoprolol CKD 3 - creatinine at baseline - given 500 mL LR in ED - monitor BMP - avoid nephrotoxins when possible GERD - continue omeprazole Med rec pending Full code VTE prophylaxis: Pneumoboots due to anemia Patient with sepsis secondary to UTI, complicated by anemia, requiring admission for at least 2 midnight stay for IV antibiotics and monitoring. Quality Stroke Does the patient have a stroke diagnosis?: No VTE Prior VTE?: No VTE Risk Level:: Medical - moderate - high VTE Device Contraindication: N/A - Device Ordered VTE Drug Contraindication: Treatment Not Indicated
[2025-05-25 01:17] LABS: Hematocrit 21.9 % (37.0-47.0); Hemoglobin 7.3 g/dl (12.0-16.0)
[2025-05-25 03:24] VITALS: BP 114/71; PULSE 85; RESP 16; TEMP 37.1; O2SAT 97
[2025-05-25] MEDS: 0.9 % Sodium Chloride Flush 3 ML SYRINGE IVFLUSH (07:20)
[2025-05-25 07:40] VITALS: BP 124/68; PULSE 83; RESP 14; TEMP 36.6; O2SAT 97
[2025-05-25 07:45] LABS: Hematocrit 23.0 % (37.0-47.0); Hemoglobin 7.6 g/dl (12.0-16.0); Mean Corpuscular HGB Conc 33.0 g/dl (31.0-35.0); Mean Corpuscular Hemoglobin 23.5 pg (27.0-33.0); Mean Corpuscular Volume 71.2 fL (80.0-98.0); NRBC Abs Auto 0.050 X10*3/uL (0.0-0.012); NRBC Pct Auto 0.4 /100WBC (0.0-0.2); Platelet Count 445 X10*3/uL (160-400); Red Blood Count 3.23 X10*6/uL (4.20-5.50); White Blood Count 13.5 X10*3/uL (4.8-10.8)
[2025-05-25 07:46] LABS: Anion Gap 14 (12-20); Blood Urea Nitrogen 31 mg/dL (9-16); Calcium 8.5 mg/dL (8.4-10.2); Carbon Dioxide 26 mmol/L (22-29); Chloride 105 mmol/L (96-108); Creatinine Clr Calc Pharmacy 27.9; Estimated Glomerular Filt Rate 35; Iron 18 mcg/dL (30-160); Percent Iron Saturation 6 % (15-50); Potassium 4.3 mmol/L (3.3-5.1); Reticulocytes Absolute 0.063 X10*6/uL (0.026-0.095); Sodium 141 mmol/L (135-145); Total Iron Binding Capacity 282 mcg/dL (228-428); Unsaturated Iron Binding 264 ug/dL
[2025-05-25 08:08] LABS: Ferritin 24 ng/mL (10-250)
[2025-05-25 08:20] LABS: Folate 7.3 ng/mL (> or = 4.0); Vitamin B12 352 pg/mL (200-900)
--- NOTE | 2025-05-25 09:49 | P.CNGI_ITS ---
History of Present Illness Data of Consult Service Date: 05/25/25 Requesting physician: Brittany Edwards Primary Care Provider: Unknown Physician HPI Reason for consult: anemia 80-year-old Austrian speaking female with gout, hypertension, CKD, HFpEF, and GERD, seen at [facility] on 05/24/25 due to weakness, dizziness, shortness of breath that began yesterday morning after waking up. She has had a few days of urinary frequency and dysuria. Her [id number] states that she was unable to get off the toilet this morning due to weakness in her legs and dizziness, which have all resolved. She was recently here on 05/16 and was treated for left hand gout, on prednisone which she just completed. Hx obtained from pt's ex [id number], Kiana Banerjee, who was at the bedside. DIL reports pt has had dysphagia with intermittent choking with solids and liquids for the past 3-4 months. She is able to eat small bites of soft food. DIL states pt has regular BMs without constipation or diarrhea - stools are intermittently dark without gross blood. The patient denies any shortness of breath, cough or dyspnea. No abdominal pain or chest pain. 05/24/[address] SCAN SHOWED: 1. No pulmonary embolus. No evidence of acute aortic syndrome. 2. Mild diffuse interstitial prominence in both lungs as well as patchy ground-glass opacities may represent mild pulmonary edema/fluid overload. Review of Systems 2 Review of Systems: Yes all other systems are reviewed and are negative PMFSH Past Medical History Medical History (Updated 05/25/25 @ 01:32 by Brittany Edwards PA-C) (HFpEF) heart failure with preserved ejection fraction CKD (chronic kidney disease) stage 3, GFR 30-59 ml/min Gout HTN (hypertension) Social History Social History Smoked in Last 30 Days: No Use of substances other than those prescribed or required for medical reasons: No Advance Directives: No Advance Directives Information Provided: No Do you have a plan to hurt others: No Plan service: No Meds Allergies Allergy/AdvReac Type Severity Reaction Status Date / Time No Known Allergies Allergy Verified 05/24/25 15:08 Active Medications: Current Medications Acetaminophen (Acetaminophen 325 Mg Tablet) 975 mg PO Q6H PRN PRN Reason: Pain, Mild 1-3,fever,headache Calcium Carbonate (Calcium Carbonate 750 Mg Tab.Chew) 750 mg PO Q4H PRN PRN Reason: Heartburn Ceftriaxone Sodium (Ceftriaxone Sodium 2 Gm Vial) 2 gm IVPUSH Q24H [facility] Magnesium Hydroxide (Milk Of Magnesia 30 Ml Oral.Susp) 30 ml PO DAILY PRN PRN Reason: Constipation Melatonin (Melatonin 3 Mg Tablet) 6 mg PO BEDTIME PRN PRN Reason: Insomnia Ondansetron HCl (Ondansetron Hcl 4 Mg/2 Ml Vial) 4 mg IVPUSH Q8H PRN PRN Reason: Nausea and Vomiting Oxycodone HCl (Oxycodone Hcl Immed Release 5 Mg Tablet) 5 mg PO Q6H PRN PRN Reason: Pain, Severe (Pain Scale 7-10) Pantoprazole Sodium (Pantoprazole Sodium 40 Mg/10 Ml Vial) 40 mg IVPUSH DAILY@0630 [facility] Last Admin: 05/25/25 07:20 Dose: 40 mg Sodium Chloride (0.9 % Sodium Chloride Flush 3 Ml Syringe) 3 ml IVFLUSH QSHIFT [facility] Last Admin: 05/25/25 07:20 Dose: 3 ml Tramadol HCl (Tramadol Hcl 50 Mg Tablet) 50 mg PO Q6H PRN PRN Reason: Pain, Moderate(Pain Scale 4-6) Home Medications ?Medication ?Instructions ?Recorded ?Confirmed ?Last Taken ?Type allopurinol 100 mg tablet 100 mg PO DAILY 05/25/25 Unknown History aspirin 81 mg tablet,delayed 81 mg PO DAILY 05/25/25 0 05/25/25 05/25/25 History release diphenhydramine 25 1 tab PO BEDTIME PRN Sleep 0 05/25/25 05/25/25 Unknown History mg-acetaminophen 500 mg tablet (Acetaminophen PM) furosemide 20 mg tablet 20 mg PO DAILY 05/25/2505/0905/25/25 History gabapentin 300 mg capsule 300 mg PO TID 05/25/2505/2505/25/25 History lidocaine 5 % topical patch 1 patch topical DAILY 05/0905/25/25 Unknown History lisinopril 5 mg tablet 5 mg PO DAILY 05/25/2505/2505/25/25 History metoprolol succinate 25 mg 25 mg PO DAILY 05/25/2505/25/25 History tablet,extended release 24 hr omeprazole 20 mg capsule,delayed 20 mg PO DAILY@0630 0 05/25/25 05/25/25 05/25/25 History release prednisone 10 mg tablet 10 mg PO DAILY 05/25/2505/0905/24/25 History Physical Exam 2 Vital Signs: Vital Signs: Last Vital Signs Temp 97.9 F 05/25/25 07:40 Pulse 83 05/25/25 07:40 Resp 14 05/25/25 07:40 BP 124/68 05/25/25 07:40 Pulse Ox 97 05/25/25 07:40 O2 Del Method Room Air 05/25/25 07:40 BMI result Body Mass Index 26.2 Const: General: no acute distress Nutritional Appearance: overweight O rientation/consciousness: patient oriented x3 Limitations: language barrier HEENT: Head: Yes normal to inspection Ears: hearing grossly normal bilaterally Eyes: Sclerae: sclerae normal Pupils: Equal, round and reactive pupils present Neck: Neck: Yes normal visual inspection Chest: Chest palpation & inspection: normal inspection of the chest Resp: Effort & Inspection: normal respiratory effort Auscultation: clear to auscultation bilaterally Cardio: Palpation: normal PMI Rate: regular rate Rhythm: regular rhythm Heart sounds: S1 normal heart sound present, S2 normal heart sound present and no murmurs GI: Palpation (GI): Soft to palpation, nontender and No hepatosplenomegaly present Auscultation: normal bowel sounds Rectal Exam - Female: deferred Skin: General skin exam: no rashes or lesions noted Neuro: General: patient oriented x3, gait normal and moves all extremities Cranial nerves: Yes Equal, round and reactive pupils present Psych: Appearance: grossly normal Mental Status: mental status grossly normal Results Labs 05/25/25 07:02 05/25/25 07:02 Labs: Short CBC 05/24/25 05/25/25 05/25/25 Range/Units 15:38 01:09 07:02 WBC 15.1 H 13.5 H (4.8-10.8) X10*3/uL Hgb 7.6 L 7.3 L 7.6 L (12.0-16.0) g/dl Hct 23.8 L 21.9 L 23.0 L (37.0-47.0) % Plt Count 433 H D 445 H (160-400) X10*3/uL BMP 05/24/25 05/25/25 15:38 07:02 Sodium 139 141 Potassium 5.1 D 4.3 Chloride 107 105 Carbon Dioxide 23 26 BUN 33 H 31 H Creatinine 1.33 1.43 H Calcium 8.5 D 8.5 Liver Function 05/24/25 Range/Units 15:38 Total Bilirubin 0.2 (0.0-1.0) mg/dL AST 30 (5-31) U/L ALT 28 (0-31) U/L Alkaline Phosphatase 60 (39-117) U/L Albumin 3.4 L (3.5-5.0) g/dL Urine 05/24/25 Range/Units 16:32 Urine Color Yellow Urine Appearance Clear Urine pH 6.0 (5.0-9.0) Ur Specific [place] 1.015 (1.005-1.025) Urine Protein Negative (Neg-Trace) mg/dL Urine Glucose (UA) Negative (Negative) mg/dL Assessment and Plan (1) Microcytic anemia: Status: Acute Plan 80-year-old Austrian speaking female with gout, hypertension, CKD, HFpEF, and GERD, admitted to [facility] on 05/24/25 due to weakness, dizziness, shortness of breath that began yesterday morning after waking up. DIL reports pt has had dysphagia with intermittent choking with solids and liquids for the past 3-4 months. She is able to eat small bites of soft food. Labs showed acute on chronic microcytic hypochromic anemia with elevated RDW. Iron studies showed a mixed picture of iron def anemia and anemia of chronic disease Anemia can be from an UGI (PUD, erosive esophagitis or gastritis, UGI AVMs or mass) or LGI (large colon polyp, AVM or cancer) source. Patient needs further evaluation with an upper endoscopy and colonoscopy. RECOMMENDATIONS: 1. Agree with IV PPI and antiemetics 2. Clear liquid diet and Golytely prep on 05/26/25 3. Pt will be scheduled for EGD and Colon on 05/27/25 4. She needs a repeat ECho (last Echo was in 2019) and cardiology clearance 5. Evaluation of dysphagia by Speech pathologist Procedures Date of Service Date of Service: 05/25/25
--- NOTE | 2025-05-25 10:42 | PHA.MEDREC ---
Pharmacy Consult ? Medication Reconciliation Pharmacy has completed the medication reconciliation.Med rec complete, spoke to patient's daughter in law who also had patient's pill pack with her. She did state that allopurinol was not being taken every day
[2025-05-25 12:11] VITALS: BP 108/50; PULSE 67; RESP 14; TEMP 37.1; O2SAT 98
--- NOTE | 2025-05-25 12:16 | MHC.CM.PN ---
Addendum entered by Manisha Galloway 05/25/25 15:03: DISCHARGED CANCELLED, PLAN FOR EGD AND COLONOSCOPY ON 05/27/25 DCP REMAINS HOME WITH [facility] SERVICES Addendum entered by Manisha Galloway 05/25/25 13:19: PT CLEARED TO DC HOME TODAY WITH [facility] REFERRAL MADE TO [facility], AWAITING RESPONSE Original Note: CM MET WITH PTS DAUGHTER IN LAW AT [employer] SHE REPORTS PT LIVES WITH HER AND HER AND HAS 24/7 CARE SHE HAS NO FORMAL SERVICES SHE USES A ROLLATOR FOR DME COPY OF HCP REQUESTED PCP: MICA ARANA IMM DELIVERED DCP: HOME, FAMILY INTERESTED IN [facility] FAMILY TO TRANSPORT
--- NOTE | 2025-05-25 13:12 | PM.DS ---
DS: Providers Provider Date of Service: 05/25/25 Date of admission: 05/25/25 00:00 Date of discharge: 05/25/25 Primary care physician: Unknown Physician Consults: 05/25/25 02:24 Consult to Gastroenterology Routine Consulting Provider: Tomasz Gore Reason for consultation: anemia Has provider been notified: No DS: Diagnosis Discharge Diagnosis (1) Sepsis: Status: Acute (2) UTI (urinary tract infection): Status: Acute (3) Microcytic anemia: Status: Acute (4) CKD (chronic kidney disease) stage 3, GFR 30-59 ml/min: Status: Acute DS: Summary Hospital Course Hospital Course: admission hpi Chief Complaint: Weakness Patient is an 80-year-old Chadian speaking female with a past medical history significant for gout, hypertension, CKD, HFpEF, and GERD, who presented to the ED due to weakness, dizziness, shortness of breath that began yesterday morning after waking up. She has had a few days of urinary frequency and dysuria. Her [id number] states that she was unable to get off the toilet this morning due to weakness in her legs and dizziness, which have all resolved. She was recently here on 05/16 and was treated for left hand gout, on prednisone which she just completed. The patient denies any shortness of breath, cough or dyspnea. No abdominal pain or chest pain. hospital course: Patient presented with weakness, fever and work up reveal milkd Amisha, UTI. She was admited hydrated and given IV Ceftriaxone and has made a more rapid than expected recovevery. She feels better, she's eating, wbc is down, fever resolved. She wants to return home and her daughter is supportive. We do not yet have culture result yet, she's responding well to ceftriaxone and will threfore change to Po ceftin for 7 days and to follow up with PCP, they undertand that the choice of antibiotics could change based on culture result. Time Attestation Discharge Coordination Time (in mins): 45 Quality: Safe Use of Opioids Does Pt have an Active Cancer Diagnosis on the Problem List?: No Quality: Stroke Does the patient have a stroke diagnosis?: No Physical Exam Vital Signs: Vital Signs: Last Vital Signs Temp 98.8 F 05/25/25 12:11 Pulse 67 05/25/25 12:11 Resp 14 05/25/25 12:11 BP 108/50 L 05/25/25 12:11 Pulse Ox 98 05/25/25 12:11 O2 Del Method Room Air 05/25/25 12:11 BMI result Body Mass Index 26.2 General: AO X 3, no acute distress Resp: CTA bilateral CVS: S1,S2,RRR GI: +BS, NT, no distention Skin: No rash Neuro: motor grossly intact Psych: appropriate affect DS: Data Data Completed and Pending Labs on day of discharge: Laboratory Results - last 24 hr 05/24/25 05/24/25 05/24/25 15:38 15:45 15:46 WBC 15.1 H RBC 3.38 L Hgb 7.6 L Hct 23.8 L MCV 70.4 L MCH 22.5 L MCHC 31.9 RDW 19.8 H Plt Count 433 H D MPV 8.3 L Immature Gran % (Auto) 3.7 H Neut % (Auto) 76.7 H Lymph % (Auto) 17.5 L [place] % (Auto) 1.9 L Eos % (Auto) 0.1 Baso % (Auto) 0.1 Lymph # (Auto) 2.6 [place] # (Auto) 0.3 Eos # (Auto) 0.0 Baso # (Auto) 0.0 Abs Immat Gran (auto) 0.56 H Absolute Neuts (auto) 11.6 H Absolute Nucleated RBC 0.070 H Nucleated RBC % (auto) 0.5 H Absolute Retic Percent Retic Immature Retic Fraction Retic Hgb Equivalent VBG pH VBG pCO2 VBG pO2 VBG HCO3 VBG O2 Saturation VBG Base Excess Sodium 139 Potassium 5.1 D Chloride 107 Carbon Dioxide 23 Anion Gap 14 BUN 33 H Creatinine 1.33 Estim Creat Clear Calc 29.9 Estimated GFR 38 Random Glucose 114 Lactic Acid 1.7 Calcium 8.5 D Magnesium 2.2 Iron TIBC % Saturation Unsat Iron Binding Ferritin Total Bilirubin 0.2 AST 30 ALT 28 Alkaline Phosphatase 60 Troponin I High Sens 15.0 B-Natriuretic Peptide 111 H Total Protein 6.6 Albumin 3.4 L Vitamin B12 Folate Urine Color Urine Appearance Urine pH Ur Specific [place] Urine Protein Urine Glucose (UA) Urine Ketones Urine Blood Urine Nitrite Ur Leukocyte Esterase Urine RBC Urine WBC Ur Squamous Epith Cells Urine Bacteria Hyaline Casts Influenza Type A (PCR) NEGATIVE Influenza Type B (PCR) NEGATIVE RSV RNA Qual (PCR) NEGATIVE SARS-CoV-2 RNA (RT-PCR) NEGATIVE Blood Type Antibody Screen 05/24/25 05/24/25 05/24/25 15:54 16:32 18:34 WBC RBC Hgb Hct MCV MCH MCHC RDW Plt Count MPV Immature Gran % (Auto) Neut % (Auto) Lymph % (Auto) [place] % (Auto) Eos % (Auto) Baso % (Auto) Lymph # (Auto) [place] # (Auto) Eos # (Auto) Baso # (Auto) Abs Immat Gran (auto) Absolute Neuts (auto) Absolute Nucleated RBC Nucleated RBC % (auto) Absolute Retic Percent Retic Immature Retic Fraction Retic Hgb Equivalent VBG pH 7.50 H VBG pCO2 34 VBG pO2 123 VBG HCO3 27 H VBG O2 Saturation TNP VBG Base Excess 4.4 Sodium Potassium Chloride Carbon Dioxide Anion Gap BUN Creatinine Estim Creat Clear Calc Estimated GFR Random Glucose Lactic Acid Calcium Magnesium Iron TIBC % Saturation Unsat Iron Binding Ferritin Total Bilirubin AST ALT Alkaline Phosphatase Troponin I High Sens 15.6 B-Natriuretic Peptide Total Protein Albumin Vitamin B12 Folate Urine Color Yellow Urine Appearance Clear Urine pH 6.0 Ur Specific [place] 1.015 Urine Protein Negative Urine Glucose (UA) Negative Urine Ketones Negative Urine Blood Negative Urine Nitrite Negative Ur Leukocyte Esterase Large (3+) H Urine RBC 0-2 Urine WBC 21-50 H Ur Squamous Epith Cells 0-2 Urine Bacteria None Seen Hyaline Casts 0-2 Influenza Type A (PCR) Influenza Type B (PCR) RSV RNA Qual (PCR) SARS-CoV-2 RNA (RT-PCR) Blood Type Antibody Screen 05/25/25 05/25/25 01:09 07:02 WBC 13.5 H RBC 3.23 L Hgb 7.3 L 7.6 L Hct 21.9 L 23.0 L MCV 71.2 L MCH 23.5 L MCHC 33.0 RDW 19.9 H Plt Count 445 H MPV 8.6 L Immature Gran % (Auto) Neut % (Auto) Lymph % (Auto) [place] % (Auto) Eos % (Auto) Baso % (Auto) Lymph # (Auto) [place] # (Auto) Eos # (Auto) Baso # (Auto) Abs Immat Gran (auto) Absolute Neuts (auto) Absolute Nucleated RBC 0.050 H Nucleated RBC % (auto) 0.4 H Absolute Retic 0.063 Percent Retic 2.0 H Immature Retic Fraction 31.1 H Retic Hgb Equivalent 23.9 L VBG pH VBG pCO2 VBG pO2 VBG HCO3 VBG O2 Saturation VBG Base Excess Sodium 141 Potassium 4.3 Chloride 105 Carbon Dioxide 26 Anion Gap 14 BUN 31 H Creatinine 1.43 H Estim Creat Clear Calc 27.9 Estimated GFR 35 Random Glucose 73 Lactic Acid Calcium 8.5 Magnesium Iron 18 L TIBC 282 % Saturation 6 L Unsat Iron Binding 264 Ferritin 24 Total Bilirubin AST ALT Alkaline Phosphatase Troponin I High Sens B-Natriuretic Peptide Total Protein Albumin Vitamin B12 352 Folate 7.3 Urine Color Urine Appearance Urine pH Ur Specific [place] Urine Protein Urine Glucose (UA) Urine Ketones Urine Blood Urine Nitrite Ur Leukocyte Esterase Urine RBC Urine WBC Ur Squamous Epith Cells Urine Bacteria Hyaline Casts Influenza Type A (PCR) Influenza Type B (PCR) RSV RNA Qual (PCR) SARS-CoV-2 RNA (RT-PCR) Blood Type O Positive Antibody Screen NEGATIVE Preliminary micro results at discharge 05/24/25 16:56 Urine Culture - Preliminary Urine Catheterized - [place] Catheter No growth to date. Discharge Plan Discharge Anticipated Discharge Date/Time: 05/25/25 12:58 Patient Disposition: Home, Self-Care Discharge Diagnosis: UTI Referrals: Physician,Unknown J [Primary Care Provider, Medical] - 1 Week Discharge Medications: New cefuroxime axetil 250 mg tablet 250 mg PO BID 7 Days Qty: 14 0RF Continued lidocaine 5 % adhesive patch,medicated 1 patch topical DAILY prednisone 10 mg Tablet 10 mg PO DAILY Rx Instructions: Recent prednisone taper, has 1 week left at 1 tablet daily gabapentin 300 mg Capsule 300 mg PO TID omeprazole 20 mg Capsule,Delayed Release(Dr/Ec) 20 mg PO DAILY@0630 lisinopril 5 mg Tablet 5 mg PO DAILY furosemide 20 mg Tablet 20 mg PO DAILY metoprolol succinate 25 mg Tablet Extended Release 24 Hr 25 mg PO DAILY allopurinol 100 mg Tablet 100 mg PO DAILY diphenhydramine-acetaminophen [Acetaminophen PM] 25-500 mg tablet 1 tab PO BEDTIME PRN (Reason: Sleep) aspirin 81 mg tablet,delayed release (DR/EC) 81 mg PO DAILY Discharge Orders: Discharge Order (Routine); Ordered 05/25/25 Ordered By: Ambrosio paolo Diet: Advance to usual diet Activity on Discharge: As tolerated Stand Alone Forms: Patient Portal Discharge page Print Language: [place]ese (Robert) Care Plan Goals: recovery from uti,sepsis Health Concerns: sepsis, uti Plan of Treatment: take cefuroxime as directed for uti and follow up with your Doctor in a week, call for appointment Assessment: see above
[2025-05-25] MEDS: oxyCODONE HCl Immed Release 5 MG TABLET PO (15:43)
[2025-05-25 16:10] VITALS: BP 110/62; PULSE 72; RESP 13; TEMP 36.6; O2SAT 98
[2025-05-25 21:50] VITALS: BP 102/60; PULSE 76; RESP 15; TEMP 36.8; O2SAT 98
--- NOTE | 2025-05-25 21:52 | PC.NURSE ---
Patient passed bedside nursing swallow eval. Patient medicated per DEC.
[2025-05-26] VITALS (12 sets, daily range): BP systolic 107–190; BP diastolic 62–88; PULSE 69–79; RESP 14–20; TEMP 36.4–36.9; O2SAT 97–99; BMI 24.1
[2025-05-26] MEDS: 0.9 % Sodium Chloride Flush 3 ML SYRINGE IVFLUSH ×3 (00:21→19:41)
[2025-05-26 04:41] LABS: Hematocrit 22.0 % (37.0-47.0); Hemoglobin 7.1 g/dl (12.0-16.0); Mean Corpuscular HGB Conc 32.3 g/dl (31.0-35.0); Mean Corpuscular Hemoglobin 23.9 pg (27.0-33.0); Mean Corpuscular Volume 74.1 fL (80.0-98.0); NRBC Abs Auto 0.050 X10*3/uL (0.0-0.012); NRBC Pct Auto 0.4 /100WBC (0.0-0.2); Platelet Count 433 X10*3/uL (160-400); Red Blood Count 2.97 X10*6/uL (4.20-5.50); White Blood Count 14.2 X10*3/uL (4.8-10.8)
[2025-05-26] MEDS: oxyCODONE HCl Immed Release 5 MG TABLET PO (04:55)
[2025-05-26 04:59] LABS: Anion Gap 16 (12-20); Blood Urea Nitrogen 46 mg/dL (9-16); Calcium 8.1 mg/dL (8.4-10.2); Carbon Dioxide 23 mmol/L (22-29); Chloride 104 mmol/L (96-108); Creatinine Clr Calc Pharmacy 19.3; Estimated Glomerular Filt Rate 23; Potassium 4.8 mmol/L (3.3-5.1); Sodium 138 mmol/L (135-145)
--- NOTE | 2025-05-26 05:32 | PC.NURSE ---
Patient medicated with Oxycodone 5 mg PO for 4/10 pain in b/l hands, patient takes medications whole with water.
--- NOTE | 2025-05-26 08:05 | PC.NURSE ---
This RN resumed care of pt at 0700, she was resting comfortably in bed with her friend at bedside. Pt diet changed to clear liquids, pt and friend educated on the plan of care and why she is going to be clear liquids and NPO tonight at midnight, pt is upset about plan, daughter in law at bedside now discussing with pt why it is important to follow the orders. Pt has no complaints of pain at this time, sitting up in bed conversing. Call cuadra within reach, hospital bed alarm remains on, awaiting bed assignment at this time. This RN reached out to MD Daigle in regards to pt up-trending BUN/CR to see if they would like any order changes/ before morning lasix. Provider alerted Rn they would look through the chart as it is their first day with the patient, at this time awaiting further orders.
[2025-05-26] MEDS: Lidocaine 4 % Patch ADH..PATCH 1 PATCH TRANSDERMA (10:00)
[2025-05-26] MEDS: Metoprolol Succinate ER 25 MG TAB.ER.24H PO (10:01)
[2025-05-26] MEDS: Aspirin Enteric Coated 81 MG TABLET.DR PO (10:01)
--- NOTE | 2025-05-26 11:21 | PC.NURSE ---
Per MD BARRERA lisinopril and lasix d/t kidney function. Md requesting post void to be done next time she gets up to use the bathroom. RN/COLLEGE OR [employer]IV[employer] BUSINESS MANAGER resuming care aware of plan
[2025-05-26] MEDS: PEG 3350/Na Sulf,Bicarb,Cl/KCL 4,000 ML SOLN.RECON 4000 ML PO (12:41)
--- NOTE | 2025-05-26 13:53 | PC.NURSE ---
Pt found walking in the hallway to restroom w/family and walker, pt's pants were found falling down below her knees while walking. Pt assisted back to bedside commode in ED25, patient and family re-educated on importance of using callbell for assistance, especially for getting out of bed, and to use bedside commode so we can obtain a stool sample. Pt and family also re-educated on importance of drinking 240mL q10min of bowel prep for scope tomorrow, but pt states it does not taste good. Pt and family verbalize understanding of teaching, pt now resting comfortably in bed w/family at bedside, monitoring reattached. Care ongoing.
[2025-05-26 14:28] LABS: OBS Int Ctl Valid YES; OBS1 NEGATIVE (NEGATIVE)
--- NOTE | 2025-05-26 14:35 | P.CONAN_ITS ---
HPI - Anesthesia Eval Consult details Narrative: 80 yr old female for upper endoscopy, colonoscopy No CP, +SOB occasional Heart failure with preserved ejection fraction: [place] [place] ?2019; reached out to Dr. Gore who requested hospitalist update echo/cardiology consult. CKD stage 3: no recent follow up with renal. Dementia: has 01/05 care Gout: on prednisone chronically PMFSH Active Problems Active Problems: All Active Problems Microcytic anemia (Acute) Sepsis (Acute) (HFpEF) heart failure with preserved ejection fraction (Acute) CKD (chronic kidney disease) stage 3, GFR 30-59 ml/min (Acute) Gout (Acute) HTN (hypertension) (Acute) Weakness (Acute) UTI (urinary tract infection) (Acute) Past Medical History Medical History (Updated 05/26/25 @ 15:28 by Michelle Daigle MD) (HFpEF) heart failure with preserved ejection fraction CKD (chronic kidney disease) stage 3, GFR 30-59 ml/min Gout HTN (hypertension) Family History Family history of problems with anesthesia: No Surgical History History of Problems with Anesthesia: No Social History Social History service: No Meds Allergies Allergy/AdvReac Type Severity Reaction Status Date / Time No Known Allergies Allergy Verified 05/24/25 15:08 Active Medications: Current Medications Acetaminophen (Acetaminophen 325 Mg Tablet) 975 mg PO Q6H PRN PRN Reason: Pain, Mild 1-3,fever,headache Allopurinol (Allopurinol 100 Mg Tablet) 100 mg PO DAILY [facility] Last Admin: 05/26/25 10:01 Dose: 100 mg Aspirin (Aspirin Enteric Coated 81 Mg Tablet.Dr) 81 mg PO DAILY [facility] Last Admin: 05/26/25 10:01 Dose: 81 mg Calcium Carbonate (Calcium Carbonate 750 Mg Tab.Chew) 750 mg PO Q4H PRN PRN Reason: Heartburn Ceftriaxone Sodium (Ceftriaxone Sodium 2 Gm Vial) 2 gm IVPUSH Q24H [facility] Last Admin: 05/25/25 17:49 Dose: 2 gm Gabapentin (Gabapentin 300 Mg Capsule) 300 mg PO TID [facility] Last Admin: 05/26/25 10:01 Dose: 300 mg Lidocaine (Lidocaine 4 % Patch Adh..Patch) 1 patch TRANSDERMA DAILY [facility] Last Admin: 05/26/25 10:00 Dose: 1 patch Magnesium Hydroxide (Milk Of Magnesia 30 Ml Oral.Susp) 30 ml PO DAILY PRN PRN Reason: Constipation Melatonin (Melatonin 3 Mg Tablet) 6 mg PO BEDTIME PRN PRN Reason: Insomnia Metoprolol Succinate (Metoprolol Succinate Er 25 Mg Tab.Er.24h) 25 mg PO DAILY [facility]; Protocol Last Admin: 05/26/25 10:01 Dose: 25 mg Ondansetron HCl (Ondansetron Hcl 4 Mg/2 Ml Vial) 4 mg IVPUSH Q8H PRN PRN Reason: Nausea and Vomiting Oxycodone HCl (Oxycodone Hcl Immed Release 5 Mg Tablet) 5 mg PO Q6H PRN PRN Reason: Pain, Severe (Pain Scale 7-10) Last Admin: 05/26/25 04:55 Dose: 5 mg Pantoprazole Sodium (Pantoprazole Sodium 40 Mg/10 Ml Vial) 40 mg IVPUSH DAILY@0630 [facility] Last Admin: 05/26/25 05:29 Dose: 40 mg Prednisone (Prednisone 10 Mg Tablet) 10 mg PO DAILY [facility] Last Admin: 05/26/25 10:01 Dose: 10 mg Sodium Chloride (0.9 % Sodium Chloride Flush 3 Ml Syringe) 3 ml IVFLUSH QSHIFT [facility] Last Admin: 05/26/25 10:01 Dose: 3 ml Tramadol HCl (Tramadol Hcl 50 Mg Tablet) 50 mg PO Q6H PRN PRN Reason: Pain, Moderate(Pain Scale 4-6) Last Admin: 05/26/25 01:43 Dose: 50 mg Home Medications ?Medication ?Instructions ?Recorded ?Confirmed ?Last Taken ?Type allopurinol 100 mg tablet 100 mg PO DAILY 05/25/25 Unknown History aspirin 81 mg tablet,delayed 81 mg PO DAILY 05/25/25 0 05/25/25 05/25/25 History release diphenhydramine 25 1 tab PO BEDTIME PRN Sleep 0 05/25/25 05/25/25 Unknown History mg-acetaminophen 500 mg tablet (Acetaminophen PM) furosemide 20 mg tablet 20 mg PO DAILY 05/25/2505/0905/25/25 History gabapentin 300 mg capsule 300 mg PO TID 05/25/2505/2505/25/25 History lidocaine 5 % topical patch 1 patch topical DAILY 05/0905/25/25 Unknown History lisinopril 5 mg tablet 5 mg PO DAILY 05/25/2505/2505/25/25 History metoprolol succinate 25 mg 25 mg PO DAILY 05/25/2505/25/25 History tablet,extended release 24 hr omeprazole 20 mg capsule,delayed 20 mg PO DAILY@0630 0 05/25/25 05/25/25 05/25/25 History release prednisone 10 mg tablet 10 mg PO DAILY 05/25/2505/0905/24/25 History Exam Height,Weight and Vital Signs: Height 5 ft 3 in Weight 67 kg Last Vital Signs Temp 98.1 F 05/26/25 12:24 Pulse 73 05/26/25 12:24 Resp 16 05/26/25 12:24 BP 132/84 05/26/25 12:24 Pulse Ox 98 05/26/25 12:24 O2 Del Method Room Air 05/26/25 12:24 Pertinent Lab Results Pertinent Lab Results: Laboratory Tests 05/24/25 05/24/25 05/24/25 15:38 15:45 15:46 WBC 15.1 H RBC 3.38 L Hgb 7.6 L Hct 23.8 L MCV 70.4 L MCH 22.5 L MCHC 31.9 RDW 19.8 H Plt Count 433 H D MPV 8.3 L Immature Gran % (Auto) 3.7 H Neut % (Auto) 76.7 H Lymph % (Auto) 17.[address] [facility] % (Auto) 1.9 L Eos % (Auto) 0.1 Baso % (Auto) 0.1 Lymph # (Auto) 2.6 [facility] # (Auto) 0.3 Eos # (Auto) 0.0 Baso # (Auto) 0.0 Abs Immat Gran (auto) 0.56 H Absolute Neuts (auto) 11.6 H Absolute Nucleated RBC 0.070 H Nucleated RBC % (auto) 0.5 H Absolute Retic Percent Retic Immature Retic Fraction Retic Hgb Equivalent VBG pH VBG pCO2 VBG pO2 VBG HCO3 VBG O2 Saturation VBG Base Excess Sodium 139 Potassium 5.1 D Chloride 107 Carbon Dioxide 23 Anion Gap 14 BUN 33 H Creatinine 1.33 Estim Creat Clear Calc 29.9 Estimated GFR 38 Random Glucose 114 Lactic Acid 1.7 Calcium 8.5 D Magnesium 2.2 Iron TIBC % Saturation Unsat Iron Binding Ferritin Total Bilirubin 0.2 AST 30 ALT 28 Alkaline Phosphatase 60 Troponin I High Sens 15.0 B-Natriuretic Peptide 111 H Total Protein 6.6 Albumin 3.4 L Vitamin B12 Folate Urine Color Urine Appearance Urine pH Ur Specific [place] Urine Protein Urine Glucose (UA) Urine Ketones Urine Blood Urine Nitrite Ur Leukocyte Esterase Urine RBC Urine WBC Ur Squamous Epith Cells Urine Bacteria Hyaline Casts Stool Occult Blood Influenza Type A (PCR) NEGATIVE Influenza Type B (PCR) NEGATIVE RSV RNA Qual (PCR) NEGATIVE SARS-CoV-2 RNA (RT-PCR) NEGATIVE Blood Type Antibody Screen 05/24/25 05/24/25 05/24/25 15:54 16:32 18:34 WBC RBC Hgb Hct MCV MCH MCHC RDW Plt Count MPV Immature Gran % (Auto) Neut % (Auto) Lymph % (Auto) [facility] % (Auto) Eos % (Auto) Baso % (Auto) Lymph # (Auto) [facility] # (Auto) Eos # (Auto) Baso # (Auto) Abs Immat Gran (auto) Absolute Neuts (auto) Absolute Nucleated RBC Nucleated RBC % (auto) Absolute Retic Percent Retic Immature Retic Fraction Retic Hgb Equivalent VBG pH 7.50 H VBG pCO2 34 VBG pO2 123 VBG HCO3 27 H VBG O2 Saturation TNP VBG Base Excess 4.4 Sodium Potassium Chloride Carbon Dioxide Anion Gap BUN Creatinine Estim Creat Clear Calc Estimated GFR Random Glucose Lactic Acid Calcium Magnesium Iron TIBC % Saturation Unsat Iron Binding Ferritin Total Bilirubin AST ALT Alkaline Phosphatase Troponin I High Sens 15.6 B-Natriuretic Peptide Total Protein Albumin Vitamin B12 Folate Urine Color Yellow Urine Appearance Clear Urine pH 6.0 Ur Specific [place] 1.015 Urine Protein Negative Urine Glucose (UA) Negative Urine Ketones Negative Urine Blood Negative Urine Nitrite Negative Ur Leukocyte Esterase Large (3+) H Urine RBC 0-2 Urine WBC 21-50 H Ur Squamous Epith Cells 0-2 Urine Bacteria None Seen Hyaline Casts 0-2 Stool Occult Blood Influenza Type A (PCR) Influenza Type B (PCR) RSV RNA Qual (PCR) SARS-CoV-2 RNA (RT-PCR) Blood Type Antibody Screen 05/25/25 05/25/25 05/26/25 01:09 07:02 03:23 WBC 13.5 H 14.2 H RBC 3.23 L 2.97 L Hgb 7.3 L 7.6 L 7.1 L Hct 21.9 L 23.0 L 22.0 L MCV 71.2 L 74.1 L MCH 23.5 L 23.9 L MCHC 33.0 32.3 RDW 19.9 H 19.9 H Plt Count 445 H 433 H MPV 8.6 L 8.8 L Immature Gran % (Auto) Neut % (Auto) Lymph % (Auto) [facility] % (Auto) Eos % (Auto) Baso % (Auto) Lymph # (Auto) [facility] # (Auto) Eos # (Auto) Baso # (Auto) Abs Immat Gran (auto) Absolute Neuts (auto) Absolute Nucleated RBC 0.050 H 0.050 H Nucleated RBC % (auto) 0.4 H 0.4 H Absolute Retic 0.063 Percent Retic 2.0 H Immature Retic Fraction 31.1 H Retic Hgb Equivalent 23.9 L VBG pH VBG pCO2 VBG pO2 VBG HCO3 VBG O2 Saturation VBG Base Excess Sodium 141 138 Potassium 4.3 4.8 Chloride 105 104 Carbon Dioxide 26 23 Anion Gap 14 16 BUN 31 H 46 H Creatinine 1.43 H 2.06 H Estim Creat Clear Calc 27.9 19.3 Estimated GFR 35 23 Random Glucose 73 83 Lactic Acid Calcium 8.5 8.1 L Magnesium Iron 18 L TIBC 282 % Saturation 6 L Unsat Iron Binding 264 Ferritin 24 Total Bilirubin AST ALT Alkaline Phosphatase Troponin I High Sens B-Natriuretic Peptide Total Protein Albumin Vitamin B12 352 Folate 7.3 Urine Color Urine Appearance Urine pH Ur Specific [place] Urine Protein Urine Glucose (UA) Urine Ketones Urine Blood Urine Nitrite Ur Leukocyte Esterase Urine RBC Urine WBC Ur Squamous Epith Cells Urine Bacteria Hyaline Casts Stool Occult Blood Influenza Type A (PCR) Influenza Type B (PCR) RSV RNA Qual (PCR) SARS-CoV-2 RNA (RT-PCR) Blood Type O Positive Antibody Screen NEGATIVE 05/26/25 14:16 WBC RBC Hgb Hct MCV MCH MCHC RDW Plt Count MPV Immature Gran % (Auto) Neut % (Auto) Lymph % (Auto) [facility] % (Auto) Eos % (Auto) Baso % (Auto) Lymph # (Auto) [facility] # (Auto) Eos # (Auto) Baso # (Auto) Abs Immat Gran (auto) Absolute Neuts (auto) Absolute Nucleated RBC Nucleated RBC % (auto) Absolute Retic Percent Retic Immature Retic Fraction Retic Hgb Equivalent VBG pH VBG pCO2 VBG pO2 VBG HCO3 VBG O2 Saturation VBG Base Excess Sodium Potassium Chloride Carbon Dioxide Anion Gap BUN Creatinine Estim Creat Clear Calc Estimated GFR Random Glucose Lactic Acid Calcium Magnesium Iron TIBC % Saturation Unsat Iron Binding Ferritin Total Bilirubin AST ALT Alkaline Phosphatase Troponin I High Sens B-Natriuretic Peptide Total Protein Albumin Vitamin B12 Folate Urine Color Urine Appearance Urine pH Ur Specific [place] Urine Protein Urine Glucose (UA) Urine Ketones Urine Blood Urine Nitrite Ur Leukocyte Esterase Urine RBC Urine WBC Ur Squamous Epith Cells Urine Bacteria Hyaline Casts Stool Occult Blood NEGATIVE Influenza Type A (PCR) Influenza Type B (PCR) RSV RNA Qual (PCR) SARS-CoV-2 RNA (RT-PCR) Blood Type Antibody Screen Narrative Narrative: CTA chest 05/26/25 IMPRESSION: 1. No pulmonary embolus. No evidence of acute aortic syndrome. 2. Mild diffuse interstitial prominence in both lungs as well as patchy ground-glass opacities may represent mild pulmonary edema/fluid overload. EKG 05/24/25 Vent. Rate : 97 BPM Atrial Rate : 97 BPM P-R Int : 176 ms QRS Dur : 86 ms QT Int : 348 ms P-R-T Axes : 50 3 48 degrees QTcB Int : 441 ms Normal sinus rhythm Normal ECG When compared with ECG of 10-Apr-2024 17:07, No significant change was found Airway Mallampati Class: Patient Non-Cooperative TM Dist: >3cm Neck ROM: Limited Loose/Missing/Broken Teeth: Yes, Upper (M) and Lower (M) Heart: RRR Lungs: CTAB decreased at bases Assessment and Plan Final Anesthetic Review Family History of Problems with Anesthesia: No History of Problems with Anesthesia: No
--- NOTE | 2025-05-26 15:16 | P.PNIM_ITS ---
Subjective Subjective Date of Service: 05/26/25 Interval History: Pt seen in ed, daughter at bedside, pt denies any sx, states she feels better, Cr went up today, Lasix dced, Review of Systems -ve except as stated above Physical Exam 2 Vital Signs: Vital Signs: Last Vital Signs Temp 98.1 F 05/26/25 12:24 Pulse 73 05/26/25 12:24 Resp 16 05/26/25 12:24 BP 132/84 05/26/25 12:24 Pulse Ox 98 05/26/25 12:24 O2 Del Method Room Air 05/26/25 12:24 BMI result Body Mass Index 26.2 General: AOx3, no acute distress, seen with kalpana appiah bedside who gonzalez slates, they do no t want to use inte [employer] iPad Resp: CTA bilaterally C VS: S1, S2, RRR GI : +BS, NT, no dist ention Skin: Warm, dry Neuro: Crania l nerves II-XII gr ossly intact bilat erally. Motor lorri sly intact bilater ally Extremities: No pitting edema P sych: Appropriate affect Const: General: No confus ion Orientation/c onsciousness: No c onfusion Neuro: General: No confus ion Objective Data Active Medications Acetaminophen (Acetaminophen 325 Mg Tablet) 975 mg PO Q6H PRN PRN Reason: Pain, Mild 1-3,fever,headache Allopurinol (Allopurinol 100 Mg Tablet) 100 mg PO DAILY [facility] Last Admin: 05/26/25 10:01 Dose: 100 mg Documented By: NYASIA Aspirin (Aspirin Enteric Coated 81 Mg Tablet.Dr) 81 mg PO DAILY [facility] Last Admin: 05/26/25 10:01 Dose: 81 mg Documented By: NYASIA Calcium Carbonate (Calcium Carbonate 750 Mg Tab.Chew) 750 mg PO Q4H PRN PRN Reason: Heartburn Ceftriaxone Sodium (Ceftriaxone Sodium 2 Gm Vial) 2 gm IVPUSH Q24H [facility] Last Admin: 05/25/25 17:49 Dose: 2 gm Documented By: ANDREY Gabapentin (Gabapentin 300 Mg Capsule) 300 mg PO TID [facility] Last Admin: 05/26/25 10:01 Dose: 300 mg Documented By: NYASIA Lidocaine (Lidocaine 4 % Patch Adh..Patch) 1 patch TRANSDERMA DAILY [facility] Last Admin: 05/26/25 10:00 Dose: 1 patch Documented By: NYASIA Magnesium Hydroxide (Milk Of Magnesia 30 Ml Oral.Susp) 30 ml PO DAILY PRN PRN Reason: Constipation Melatonin (Melatonin 3 Mg Tablet) 6 mg PO BEDTIME PRN PRN Reason: Insomnia Metoprolol Succinate (Metoprolol Succinate Er 25 Mg Tab.Er.24h) 25 mg PO DAILY [facility]; Protocol Last Admin: 05/26/25 10:01 Dose: 25 mg Documented By: NYASIA Ondansetron HCl (Ondansetron Hcl 4 Mg/2 Ml Vial) 4 mg IVPUSH Q8H PRN PRN Reason: Nausea and Vomiting Oxycodone HCl (Oxycodone Hcl Immed Release 5 Mg Tablet) 5 mg PO Q6H PRN PRN Reason: Pain, Severe (Pain Scale 7-10) Last Admin: 05/26/25 04:55 Dose: 5 mg Documented By: MICHOACANO Pantoprazole Sodium (Pantoprazole Sodium 40 Mg/10 Ml Vial) 40 mg IVPUSH DAILY@0630 [facility] Last Admin: 05/26/25 05:29 Dose: 40 mg Documented By: MICHOACANO Prednisone (Prednisone 10 Mg Tablet) 10 mg PO DAILY [facility] Last Admin: 05/26/25 10:01 Dose: 10 mg Documented By: NYASIA Sodium Chloride (0.9 % Sodium Chloride Flush 3 Ml Syringe) 3 ml IVFLUSH QSHIFT [facility] Last Admin: 05/26/25 10:01 Dose: 3 ml Documented By: NYASIA Tramadol HCl (Tramadol Hcl 50 Mg Tablet) 50 mg PO Q6H PRN PRN Reason: Pain, Moderate(Pain Scale 4-6) Last Admin: 05/26/25 01:43 Dose: 50 mg Documented By: MICHOACANO Labs 05/26/25 03:23 05/26/25 03:23 Labs: Laboratory Results - last 24 hr 05/26/25 05/26/25 03:23 14:16 MCV 74.1 L MCH 23.9 L MCHC 32.3 RDW 19.9 H Plt Count 433 H MPV 8.8 L Absolute Nucleated RBC 0.050 H Nucleated RBC % (auto) 0.4 H Anion Gap 16 Estim Creat Clear Calc 19.3 Estimated GFR 23 Random Glucose 83 Calcium 8.1 L Stool Occult Blood NEGATIVE Microbiology Microbiology Results: Microbiology 05/24/25 16:56 Urine Culture - Preliminary Urine Catheterized - Montano Catheter Culture in progress. 05/24/25 15:45 Blood Culture - Preliminary Blood - Venous No growth after 24 hours. 05/24/25 15:45 Blood Culture - Preliminary Blood - Venous No growth after 24 hours. Assessment and Plan (1) (HFpEF) heart failure with preserved ejection fraction: Status: Acute (2) HTN (hypertension): Status: Acute (3) CKD (chronic kidney disease) stage 3, GFR 30-59 ml/min: Status: Acute (4) UTI (urinary tract infection): Status: Acute (5) GEORGE (acute kidney injury): Status: Acute (6) Microcytic anemia: Status: Acute (7) Gout: Status: Acute (8) Sepsis: Status: Acute (9) Weakness: Status: Acute Plan Patient is an 80-year-old [place]ian speaking female with a past medical history significant for gout, hypertension, CKD, HFpEF, and GERD, who presented to the ED due to weakness, dizziness, shortness of breath that began yesterday morning after waking up. Sepsis secondary to UTI resolved - WBC 15.1, tachycardic and tachypneic, lactic acid normal, blood cultures NTD, trops indeterminate , UA ~ pyuria , UC pending - COVID/flu/RSV negative - chest CTA negative for pulmonary embolus. Mild diffuse interstitial prominence in both lungs as well as patchy ground-glass opacities may represent mild pulmonary edema/fluid overload (patient asymptomatic) - given 500 mL LR in ED, - ceftriaxone dx2 GEORGE: Cr went up on 1.33 to 2.06, received IVF in ed, and then was started on Lasix , dc Lasix this am , hold lisinopril cont to monitor for now, may need a bolus if cr continues to get worse. Microcytic anemia - hemoglobin 7.6 , trending down - no obvious bleeding source - type and screen - blood transfusion consent ready - hold on blood transfusion as pt is still above transfusion threshold at this time - GI consulted, - NPO after midnight for egd and colonoscopy tomorrow - pre op echo ordered - cardiology clearance - gi prep ordered. - monitor H+H Dysphagia: speech eval Pulmonary edema/fluid overload on CT - patient asymptomatic - lungs clear, no pitting edema - continue to monitor - hold home Lasix due to george. Gout - recovered from recent flare Hypertension - continue metoprolol, hold lisinopril due to george CKD 3 GEORGE - creatinine trending up - given 500 mL LR in ED - monitor BMP - avoid nephrotoxins when possible GERD - continue omeprazole Med rec pending Full code VTE prophylaxis: Pneumoboots due to anemia Patient with sepsis secondary to UTI, complicated by anemia, requiring admission for at least 2 midnight stay for IV antibiotics and monitoring. Quality Stroke Does the patient have a stroke diagnosis?: No VTE Prior VTE?: No VTE Risk Level:: Medical - moderate - high VTE Device Contraindication: N/A - Device Ordered VTE Drug Contraindication: Treatment Not Indicated
--- NOTE | 2025-05-26 15:29 | P.PNIM_ITS ---
Subjective Subjective Date of Service: 05/26/25 Physical Exam 2 Vital Signs: Vital Signs: Last Vital Signs Temp 98.1 F 05/26/25 12:24 Pulse 73 05/26/25 12:24 Resp 16 05/26/25 12:24 BP 132/84 05/26/25 12:24 Pulse Ox 98 05/26/25 12:24 O2 Del Method Room Air 05/26/25 12:24 BMI result Body Mass Index 26.2 Objective Data Active Medications Acetaminophen (Acetaminophen 325 Mg Tablet) 975 mg PO Q6H PRN PRN Reason: Pain, Mild 1-3,fever,headache Allopurinol (Allopurinol 100 Mg Tablet) 100 mg PO DAILY [facility] Last Admin: 05/26/25 10:01 Dose: 100 mg Documented By: NYASIA Aspirin (Aspirin Enteric Coated 81 Mg Tablet.Dr) 81 mg PO DAILY [facility] Last Admin: 05/26/25 10:01 Dose: 81 mg Documented By: NYASIA Calcium Carbonate (Calcium Carbonate 750 Mg Tab.Chew) 750 mg PO Q4H PRN PRN Reason: Heartburn Ceftriaxone Sodium (Ceftriaxone Sodium 2 Gm Vial) 2 gm IVPUSH Q24H [facility] Last Admin: 05/25/25 17:49 Dose: 2 gm Documented By: ANDREY Gabapentin (Gabapentin 300 Mg Capsule) 300 mg PO TID [facility] Last Admin: 05/26/25 10:01 Dose: 300 mg Documented By: NYASIA Lidocaine (Lidocaine 4 % Patch Adh..Patch) 1 patch TRANSDERMA DAILY [facility] Last Admin: 05/26/25 10:00 Dose: 1 patch Documented By: NYASIA Magnesium Hydroxide (Milk Of Magnesia 30 Ml Oral.Susp) 30 ml PO DAILY PRN PRN Reason: Constipation Melatonin (Melatonin 3 Mg Tablet) 6 mg PO BEDTIME PRN PRN Reason: Insomnia Metoprolol Succinate (Metoprolol Succinate Er 25 Mg Tab.Er.24h) 25 mg PO DAILY [facility]; Protocol Last Admin: 05/26/25 10:01 Dose: 25 mg Documented By: NYASIA Ondansetron HCl (Ondansetron Hcl 4 Mg/2 Ml Vial) 4 mg IVPUSH Q8H PRN PRN Reason: Nausea and Vomiting Oxycodone HCl (Oxycodone Hcl Immed Release 5 Mg Tablet) 5 mg PO Q6H PRN PRN Reason: Pain, Severe (Pain Scale 7-10) Last Admin: 05/26/25 04:55 Dose: 5 mg Documented By: MICHOACANO Pantoprazole Sodium (Pantoprazole Sodium 40 Mg/10 Ml Vial) 40 mg IVPUSH DAILY@0630 [facility] Last Admin: 05/26/25 05:29 Dose: 40 mg Documented By: MICHOACANO Prednisone (Prednisone 10 Mg Tablet) 10 mg PO DAILY [facility] Last Admin: 05/26/25 10:01 Dose: 10 mg Documented By: NYASIA Sodium Chloride (0.9 % Sodium Chloride Flush 3 Ml Syringe) 3 ml IVFLUSH QSHIFT [facility] Last Admin: 05/26/25 10:01 Dose: 3 ml Documented By: NYASIA Tramadol HCl (Tramadol Hcl 50 Mg Tablet) 50 mg PO Q6H PRN PRN Reason: Pain, Moderate(Pain Scale 4-6) Last Admin: 05/26/25 01:43 Dose: 50 mg Documented By: MICHOACANO Labs 05/26/25 03:23 05/26/25 03:23 Labs: Laboratory Results - last 24 hr 05/26/25 05/26/25 03:23 14:16 MCV 74.1 L MCH 23.9 L MCHC 32.3 RDW 19.9 H Plt Count 433 H MPV 8.8 L Absolute Nucleated RBC 0.050 H Nucleated RBC % (auto) 0.4 H Anion Gap 16 Estim Creat Clear Calc 19.3 Estimated GFR 23 Random Glucose 83 Calcium 8.1 L Stool Occult Blood NEGATIVE Microbiology Microbiology Results: Microbiology 05/24/25 16:56 Urine Culture - Preliminary Urine Catheterized - Montano Catheter Culture in progress. 05/24/25 15:45 Blood Culture - Preliminary Blood - Venous No growth after 24 hours. 05/24/25 15:45 Blood Culture - Preliminary Blood - Venous No growth after 24 hours. Quality Stroke Does the patient have a stroke diagnosis?: No VTE Prior VTE?: No VTE Risk Level:: Medical - moderate - high VTE Device Contraindication: N/A - Device Ordered VTE Drug Contraindication: Treatment Not Indicated
[2025-05-27] VITALS (8 sets, daily range): BP systolic 133–179; BP diastolic 45–88; PULSE 69–85; RESP 16–18; TEMP 36.1–36.3; O2SAT 95–97
[2025-05-27] MEDS: oxyCODONE HCl Immed Release 5 MG TABLET PO
[2025-05-27] MEDS: 0.9 % Sodium Chloride Flush 3 ML SYRINGE IVFLUSH ×3 (00:03→15:23)
[2025-05-27 06:51] LABS: Hematocrit 27.6 % (37.0-47.0); Hemoglobin 9.0 g/dl (12.0-16.0)
--- NOTE | 2025-05-27 07:00 | CA_ITS ---
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 Normal LV ejection fraction 55-60% with mild LVH with impaired relaxation filling pattern 2. Mild aortic regurgitation 3. Yhrf-re-bqtyvisr mitral regurgitation 4. Upper limits normal ascending aortic size 5. Normal RV systolic pressure 6. Trivial pericardial effusion Findings Left Ventricle Normal left ventricular size and systolic function. There is mildly increased left ventricular wall thickness. The visually estimated ejection fraction is between 55-60%. Spectral Doppler is indicative of an impaired relaxation filling pattern. E/E prime ratio is between 8 and 15 consistent with indeterminate filling pressures. Right Ventricle Normal right ventricular cavity size and systolic function. Atria The left atrium is likely dilated. There is no evidence of interatrial shunt. The right atrium is normal in size. Aortic Valve There is mild calcification of the aortic valve. There is no aortic valve stenosis. There is mild aortic valve regurgitation. Mitral Valve There is mild anterior and posterior mitral leaflet thickening. There is mild to moderate mitral valve regurgitation. There is no mitral valve stenosis. Pulmonic Valve The pulmonic valve is likely normal. There is trace pulmonic valve regurgitation. Tricuspid Valve Normal tricuspid valve structure. There is mild tricuspid valve regurgitation. The right ventricular systolic pressure is 21 mmHg. Normal right atrial pressure. There is no evidence of pulmonary hypertension. Great Vessels All visible segments of the aorta are normal in size. The pulmonary artery was not well visualized. Small plaque is seen in the sino tubular ridge. Venous The inferior vena cava is normal in size and collapses greater than 50% with inspiration. Pericardium/Pleural There is a trivial loculated pericardial effusion overlying the left ventricle. Prior Study Comparison Changes noted compared to prior study dated: 03/19/2020. LV size and systolic function have improved. Mitral regurgitation appears to be less severe Measurements 2D Linear Measurements IVSd: 1.27 0.6-0.9/0.6-1.0 cm LVIDd: 4.84 3.9-5.3/4.2-5.9 cm LVIDd Index: 2.95 2.4-3.2/2.2-3.1 cm/m2 LVIDs: 3.33 2.0-3.6 cm LVPWd: 1.25 0.7-1.1 cm Ao Root: 3.10 2.1-3.5 cm LA Diam: 3.40 2.7-3.8/3.0-4.0 cm LAIDs Index: 2.07 1.5-2.3 cm/m2 LV Mass: 296.72 67-162/88-224 g LV Mass Index: 180.93 43-95/49-115 g/m2 LVOT Diam: 2.20 3.0+(-)1.3 cm Mitral Valve MV Pk E: 0.55 MV PK A: 0.95 MV Decel Time: 233.00 E/A: 0.60 E'Lateral: 5.11 E'Medial: 2.94 E/E' Med: 18.80 E/E' Lat: 10.80 PHT: 68.00 MVA PHT: 3.24 Decel Hand: 2.38 MR Vol - PW Dopp: 71.76 MR VTI: 2.76 MR ERO: 26.00 MR Alias Cristofer: 0.39 MR RAD: 0.90 Aortic Valve AoV Pk Cristofer: 1.45 AoV Mn Cristofer: 0.95 AoV VTI: 0.36 AoV Pk Grad: 8.00 Aov Mn Grad: 4.00 SHAHBAZ Cont.VTI: 2.58 AI Pk Cristofer: 4.70 AI Hand: 3.24 LVOT LVOT Pk Cristofer: 1.00 LVOT Mn Cristofer: 0.58 LVOT VTI: 0.25 LVOT Pk Grad: 4.00 LVOT Mn Grad: 2.00 LVOT Diam: 2.20 LVOT Area: 3.80 Diastolic Function MV Pk E: 0.55 MV Pk A: 0.95 E/A: 0.60 E'Medial: 2.94 E/E' Med: 18.80 E' Laterial: 5.11 E/E' Lat: 10.80 Right Ventricle TAPSE (mm): 20.70 TVS' Cristofer: 9.68 Tricuspid Valve TR Pk Cristofer: 2.13 TR Pk Grad: 18.00 RA Press: 3.00 RVSP: 21.00 Great Vessels Aorta Ao Root-2D: 3.10 2.0-3.7 cm Ao Asc: 3.50 2.1-3.4 cm Pulmonary Valve PV Pk Cristofer: 0.90 Peak PV Grad: 3.00 Updated in Other Vendor System with Status of Final Christian Reno MD electronically signed on 05/27/2025 11:13:19 AM with status of Final
[2025-05-27 07:10] LABS: Alanine Aminotransferase 38 U/L (0-31); Albumin Level 3.2 g/dL (3.5-5.0); Alkaline Phosphatase 58 U/L (39-117); Anion Gap 14 (12-20); Aspartate Amino Transferase 35 U/L (5-31); Blood Urea Nitrogen 34 mg/dL (9-16); Calcium 7.9 mg/dL (8.4-10.2); Carbon Dioxide 29 mmol/L (22-29); Chloride 104 mmol/L (96-108); Creatinine Clr Calc Pharmacy 23.4; Estimated Glomerular Filt Rate 32; Potassium 4.0 mmol/L (3.3-5.1); Sodium 143 mmol/L (135-145); Total Protein 6.2 g/dL (6.5-8.0)
[2025-05-27] MEDS: Metoprolol Succinate ER 25 MG TAB.ER.24H PO (07:27)
[2025-05-27] MEDS: Aspirin Enteric Coated 81 MG TABLET.DR PO (07:27)
[2025-05-27] MEDS: Lidocaine 4 % Patch ADH..PATCH 1 PATCH TRANSDERMA (07:28)
--- NOTE | 2025-05-27 08:53 | P.CONCA_ITS ---
History of Present Illness History of Present Illness Date of Service: 05/27/25 Consult reason: pre-op evaluation Chief complaint: altered mental status, urinary tract infection Narrative: I was consulted to see Ximena in cardiology consultation today for preoperative cardiovascular risk stratification. 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 Patient has prior history of nonobstructive CAD by cardiac catheterization 2019, history of prior heart failure with mildly reduced LV ejection fraction by last echocardiogram in 2019. Patient has history of chronic kidney disease, hypertension, gout, chronic anemia. Patient presented to the hospital with weakness and subsequently was noted to have urinary tract infection with sepsis. She also was noted to have possibly mild heart failure based on the CAT scan findings. BNP was minimally elevated. She has been doing well. She also developed acute kidney injury which has now improved by creatinine criteria. She remains hypertensive. She had current point time denies any symptoms of chest pain or shortness of breath. She denies any orthopnea or PND. She says at home she sometimes gets short of breath. She is very vague about her history. She has no history of palpitations or irregular heartbeat. Denies any lightheadedness, syncope. Cardiology consult was sought because of her prior cardiac history and for patient to undergo upper GI endoscopy and colonoscopy. This is to be done under MAC. Review of Systems 2 Constitutional: Constitutional: Denies chills, Denies fever(s) and Reports weakness Eyes: Eyes: Denies no additional eye complaints Cardiovascular: Cardiovascular: Denies chest pain, Denies lightheadedness, Denies Loss of Consciousness, Denies palpitations, Denies dyspnea, Denies orthopnea and Denies paroxysmal nocturnal dyspnea Respiratory: Respiratory: Reports no additional respiratory complaints and Denies dyspnea Gastrointestinal: Gastrointestinal: Reports no additional gastrointestinal complaints Genitourinary: Genitourinary: Reports no additional female genitourinary complaints Musculoskeletal: Musculoskeletal: Reports no additional musculoskeletal complaints Integumentary/Breasts: Skin/Breast: Reports system reviewed and no additional complaints, except as docu Neurologic: Reports system reviewed and no additional complaints, except as documented and Reports weakness Psychiatric: Psychiatric: Reports no additional psychiatric complaints Endocrine: Endocrine: Reports no additional endocrine complaints and Denies palpitations PMFSH Past Medical History Medical History (HFpEF) heart failure with preserved ejection fraction CKD (chronic kidney disease) stage 3, GFR 30-59 ml/min Gout HTN (hypertension) Social History Social History Household Members: Family Housing: House Patient Tobacco Use Status: Former Tobacco user Tobacco use type: Cigarette e-Cigarette/Vaping Use: Never Used service: No Meds Allergies Allergy/AdvReac Type Severity Reaction Status Date / Time No Known Allergies Allergy Verified 05/24/25 15:08 Active Medications: Current Medications Acetaminophen (Acetaminophen 325 Mg Tablet) 975 mg PO Q6H PRN PRN Reason: Pain, Mild 1-3,fever,headache Allopurinol (Allopurinol 100 Mg Tablet) 100 mg PO DAILY [facility] Last Admin: 05/27/25 07:28 Dose: 100 mg Aspirin (Aspirin Enteric Coated 81 Mg Tablet.Dr) 81 mg PO DAILY [facility] Last Admin: 05/27/25 07:27 Dose: 81 mg Calcium Carbonate (Calcium Carbonate 750 Mg Tab.Chew) 750 mg PO Q4H PRN PRN Reason: Heartburn Ceftriaxone Sodium (Ceftriaxone Sodium 2 Gm Vial) 2 gm IVPUSH Q24H [facility] Last Admin: 05/26/25 19:42 Dose: 2 gm Gabapentin (Gabapentin 300 Mg Capsule) 300 mg PO TID [facility] Last Admin: 05/27/25 07:28 Dose: 300 mg Lidocaine (Lidocaine 4 % Patch Adh..Patch) 1 patch TRANSDERMA DAILY [facility] Last Admin: 05/27/25 07:28 Dose: 1 patch Magnesium Hydroxide (Milk Of Magnesia 30 Ml Oral.Susp) 30 ml PO DAILY PRN PRN Reason: Constipation Melatonin (Melatonin 3 Mg Tablet) 6 mg PO BEDTIME PRN PRN Reason: Insomnia Metoprolol Succinate (Metoprolol Succinate Er 25 Mg Tab.Er.24h) 25 mg PO DAILY [facility]; Protocol Last Admin: 05/27/25 07:27 Dose: 25 mg Ondansetron HCl (Ondansetron Hcl 4 Mg/2 Ml Vial) 4 mg IVPUSH Q8H PRN PRN Reason: Nausea and Vomiting Oxycodone HCl (Oxycodone Hcl Immed Release 5 Mg Tablet) 5 mg PO Q6H PRN PRN Reason: Pain, Severe (Pain Scale 7-10) Last Admin: 05/27/25 00:00 Dose: 5 mg Pantoprazole Sodium (Pantoprazole Sodium 40 Mg/10 Ml Vial) 40 mg IVPUSH DAILY@0630 [facility] Last Admin: 05/27/25 05:23 Dose: 40 mg Prednisone (Prednisone 10 Mg Tablet) 10 mg PO DAILY [facility] Last Admin: 05/27/25 07:28 Dose: 10 mg Sodium Chloride (0.9 % Sodium Chloride Flush 3 Ml Syringe) 3 ml IVFLUSH QSHIFT [facility] Last Admin: 05/27/25 07:29 Dose: 3 ml Tramadol HCl (Tramadol Hcl 50 Mg Tablet) 50 mg PO Q6H PRN PRN Reason: Pain, Moderate(Pain Scale 4-6) Last Admin: 05/26/25 01:43 Dose: 50 mg Home Medications ?Medication ?Instructions ?Recorded ?Confirmed ?Last Taken ?Type allopurinol 100 mg tablet 100 mg PO DAILY 05/25/25 Unknown History aspirin 81 mg tablet,delayed 81 mg PO DAILY 05/25/25 0 05/25/25 05/25/25 History release diphenhydramine 25 1 tab PO BEDTIME PRN Sleep 0 05/25/25 05/25/25 Unknown History mg-acetaminophen 500 mg tablet (Acetaminophen PM) furosemide 20 mg tablet 20 mg PO DAILY 05/25/2505/0905/25/25 History gabapentin 300 mg capsule 300 mg PO TID 05/25/2505/2505/25/25 History lidocaine 5 % topical patch 1 patch topical DAILY 05/0905/25/25 Unknown History lisinopril 5 mg tablet 5 mg PO DAILY 05/25/2505/2505/25/25 History metoprolol succinate 25 mg 25 mg PO DAILY 05/25/2505/25/25 History tablet,extended release 24 hr omeprazole 20 mg capsule,delayed 20 mg PO DAILY@0630 0 05/25/25 05/25/25 05/25/25 History release prednisone 10 mg tablet 10 mg PO DAILY 05/25/2505/0905/24/25 History Physical Exam 2 Vital Signs: Vital Signs: Last Vital Signs Temp 97.2 F 05/27/25 07:17 Pulse 69 05/27/25 07:27 Resp 16 05/27/25 07:17 BP 171/69 H 05/27/25 07:27 Pulse Ox 97 05/27/25 07:17 O2 Del Method Room Air 05/27/25 07:17 BMI result Body Mass Index 24.1 Const: General: cooperative, comfortable, no acute distress, alert and awake Nutritional Appearance: average body habitus Orientation/consciousness: p atient oriented x3 HEENT: Head: Yes normocephalic and Yes atraumatic Neck: Neck: Yes trachea midline, Yes supple and Yes no JVD Resp: Effort & Inspection: normal respiratory effort Auscultation: clear to auscultation bilaterally Cardio: Jugular venous distension: no JVD Palpation: normal PMI Rate: r egular rate Rhythm: regular rhythm Heart sounds: S1 normal heart sound present, S2 normal heart sound present, no click, no gallops, no murmurs and no rubs GI: Auscultation: normal bowel sounds Skin: General skin exam: no rashes or lesions noted Neuro: General: patient oriented x3 and no focal motor deficits Extrem: General: Yes no clubbing, cyanosis or edema Objective Labs and Meds 05/27/25 06:22 05/27/25 06:22 Lab results: Laboratory Results - last 24 hr 05/25/25 05/26/25 05/27/25 07:02 14:16 06:22 Hgb 9.0 L D Hct 27.6 L D Hold Purple Top SEE NOTE Sodium 143 Potassium 4.0 Chloride 104 Carbon Dioxide 29 Anion Gap 14 BUN 34 H Creatinine 1.53 H Estim Creat Clear Calc 23.4 Estimated GFR 32 Random Glucose 72 Calcium 7.9 L Total Bilirubin 0.2 AST 35 H ALT 38 H Alkaline Phosphatase 58 Total Protein 6.2 L Albumin 3.2 L Stool Occult Blood NEGATIVE Blood Type O Positive Antibody Screen NEGATIVE Crossmatch See Detail Reviewing bedside echo with preliminary results shows normal biventricular ejection fraction with mildly enlarged left atrium with mild aortic and mild mitral regurgitation. Assessment and Plan (1) Preoperative cardiovascular examination: Status: Acute Preoperative cardiovascular risk stratification for patient to undergo upper endoscopy and colonoscopy under sedation. Patient has no active cardiac symptoms and does not appear to have any evidence of active myocardial ischemia congestive heart failure. Her bedside echocardiogram shows preserved biventricular systolic function. Patient does not seem to have significant valvular abnormalities or pulmonary hypertension. Patient has nonobstructive CAD by cardiac catheterization 2018 and has no active anginal symptoms with exertion. Patient needs to go urgent procedure because of the significant anemia. At current point time patient is optimized from cardiac perspective to undergo this procedure with low risk for perioperative cardiovascular morbidity mortality. Her blood pressure is elevated preoperatively and can consider using IV hydralazine to lower blood pressure. Close attention to fluid shifts during the procedure needs to be pursued. (2) (HFpEF) heart failure with preserved ejection fraction: Status: Acute Prior history of heart failure preserved ejection fraction, with improved LV ejection fraction on recent echocardiogram. Clinically does not appear to be fluid overloaded. As an outpatient can use loop diuretic as a PRN. Heart failure education needs to be provided. Better blood pressure control should be pursued. If renal team is okay I would consider resuming angiotensin system antagonist such as valsartan. If not then consider using amlodipine for blood pressure control. Will sign off from cardiac perspective. Thank you for allowing me to partake in her care Procedures Date of Service Date of Service: 05/27/25
[2025-05-27] MEDS: Lactated Ringers 1,000 ML 80 ML IVCONT (10:42)
--- NOTE | 2025-05-27 10:46 | MHC.SHP ---
Pre-Procedural Eval Section A - 24 Hr Update-Section A only Date of Service: 05/27/25 The patient is an INPATIENT: Yes Changes since office visit: Yes New Medical Problems, Yes Changes in Medication and Yes Patient answered all questions; No Cold of Flu in the past 2 weeks The patient has been examined within 24 hours of the surgical procedure. The History & Physical has been completed within 30 days and I have reviewed it.: Yes Section B - Complete if H&P > 30 days Chief Complaint: altered mental status, urinary tract infection Allergies: Allergies Allergy/AdvReac Type Severity Reaction Status Date / Time No Known Allergies Allergy Verified 05/24/25 15:08 Plan Diagnosis/Plan: Unchanged I have reviewed the history and physical and performed a pertinent physical examination on my patient. No changes have occurred unless specified. Time Spent With Patient Time: Total time managing care of this patient today ____ minutes.
--- NOTE | 2025-05-27 11:23 | P.OPN-COLO_ITS ---
Colonoscopy Operative Note Operative Note Date of Service: 05/27/25 Narrative: FLEXIBLE TRANSORAL UPPER GASTROINTESTINAL ENDOSCOPY WITH BIOPSIES AND CAUTERY WITH GOLD PROBE AND COLONOSCOPY TILL CECUM WITH BIOPSIES AND SNARE POLYPECTOMY Pre-op diagnosis: Anemia, dysphagia Post-op diagnosis: Gastritis, Gastric ulcer, diverticulum Colon Polyps, Diverticulosis, hemorrhoids, rectal prolapse Endoscopist:? Tomasz Gore MD Anesthesia:?MAC UPPER ENDOSCOPY Consent: Indications for the procedure and potential complications of bleeding, perforation, reaction to medications and missed diagnosis were discussed with the patient's, Clarisse Banerjee, by phone and informed verbal consent was obtained. Instrument: Olympus GIF H 190 mid size upper endoscope Monitoring: Vital signs and clinical assessment, continuous EKG monitoring, Pulse oximetry, Carbon Dioxide monitoring and blood pressure monitoring were done throughout the procedure. Procedure: The patient was placed in the left lateral decubitis position and pre-procedure medications were administered and a bite block was placed. The endoscope was inserted into the mouth and advanced under direct vision to the third part of duodenum. A careful inspection was made as the upper endoscope was withdrawn including a retroflexed examination of the proximal stomach; Findings and interventions are described below. Findings: Larynx: Normal Esophagus: GE junction at 35 cms. Tortuous esophagus without stricture or ring .No esophagitis or Clements's. Stomach: A 15 mm ulcer with a leblanc red spot with slow oozing - ulcer bed was treated with cautery using the Gold probe with cessation of bleeding Moderate diffuse gastric erythema - biopsies were obtained from the antrum to check for Helicobacter pylori. Grade 2 flap valve on retroflexed examination of the cardia. Duodenum: Normal bulb and descending duodenum Biopsies were obtained from descending duodenum to check for celiac sprue Intervention: Biopsies as noted above COLONOSCOPY PROCEDURE NOTE Instrument: Olympus PCF H 190 L variable stiffness pediatric colonoscope Monitoring: Vital signs and clinical assessment, intermittent blood pressure monitoring, continuous EKG monitoring, Pulse oximetry and Carbon Dioxide monitoring were done throughout the procedure. Please see anesthesia flowsheet. Colon withdrawl time was 20 minutes. Procedure: The patient was placed in the left lateral decubitis position and pre-procedure medications were administered. After a digital rectal examination of the ano-rectum, the video colonoscope was inserted into the rectum and advanced through the colon to the cecum. The colonoscope was slowly withdrawn in a retrograde panoramic fashion and the colon mucosa was carefully examined including a retroflexed view of the rectum. Findings and interventions are described below. Procedure Difficulty: Colon was long and there was some loop formation Findings: Terminal Ileum: Not evaluated Cecum: A 3-4 mm sessile polyp removed with a cold biopsy Ascending Colon: A 7-8 mm sessile polyp - removed with a cold snare Transverse Colon: A 10-12 mm sessile polyp - removed with a hot snare Descending Colon: moderate diverticulosis Sigmoid Colon: Severe diverticulosis with luminal narrowing Rectum: Normal Ano-rectum: Chronic appearing prolapse of distal 2-3 cms of rectal mucosa with prolapsing hemorrhoids Colon preparation: Good after copious irrigation. [place] Bowel Preparation Scale Right colon; 2 Transverse colon: 2 Left colon; 2 (0 = Unprepared colon segment with mucosa not seen due to solid stool that cannot be cleared. 1 = Portion of mucosa of the colon segment seen, but other areas of the colon segment not well seen due to staining, residual stool and/or opaque liquid. 2 = Minor amount of residual staining, small fragments of stool and/or opaque liquid, but mucosa of colon segment seen well. 3 = Entire mucosa of colon segment seen well with no residual staining, small fragments of stool or opaque liquid) Impression and Post Procedure Diagnosis: Endoscopy Findings: ESOPHAGUS: Tortuous esophagus without stricture or ring Dysphagia is likely due to esophageal motility disorder STOMACH: A 15 mm ulcer with a leblanc red spot with slow oozing - ulcer bed was treated with cautery using the Gold probe with cessation of bleeding DUODENUM: Normal - biopsied to check for celiac sprue Colonoscopy Findings: Three small to medium sized polyps were removed Moderate to severe diverticulosis seen in the left colon Chronic appearing prolapse of distal 2-3 cms of rectal mucosa with prolapsing hemorrhoids Plan: Ok to resume a cardiac diet Ok to discharge patient on oral iron replacement and PO Omeprazole twice daily I will contact the patient with biopsy results. FU with PCP and repeat CBC next week. Pt can be referred back to GI if she has recurrent anemia. Repeat EGD in 3-4 months to confirm gastric ulcer has healed Repeat Colonoscopy is not indicated due to advanced age and multiple comorbidities. Above findings were reviewed with pt's daughter in law who requested a copy of the report be sent to her son A. Small bowel, biopsy: Small bowel mucosa with preserved villi and no specific change; no evidence of celiac disease. B. Gastric antrum, biopsy: Reactive gastropathy with focal minimal chronic inactive inflammation and a rare cell (see comment); negative for H. pylori and dysplasia. C. Colon, cecal polyp: Tubular adenoma; negative for high-grade dysplasia and carcinoma. D. Colon, ascending, polyp: Tubular adenoma; negative for high-grade dysplasia and carcinoma. E. Colon, transverse, polyp: Tubular adenoma; negative for high-grade dysplasia and carcinoma. Letter sent to the patient with biopsy results advising repeat EGD in 3-4 months.
--- NOTE | 2025-05-27 15:47 | MHC.CM.PN ---
Per [facility], pt receives the following services:Power seat chair, [employer] 57.5 hrs per week.
--- NOTE | 2025-05-27 16:47 | PM.DS ---
DS: Providers Provider Date of Service: 05/27/25 Date of admission: 05/25/25 00:00 Date of discharge: 05/27/25 Primary care physician: Clay Buck MD Consults: 05/25/25 02:24 Consult to Gastroenterology Routine Consulting Provider: Tomasz Gore Reason for consultation: anemia Has provider been notified: No 05/26/25 15:10 Consult to Cardiology Routine Consulting Provider: [facility] Reason for consultation: pre procedure clearance requested by GI DS: Diagnosis Discharge Diagnosis (1) Preoperative cardiovascular examination: Status: Acute (2) (HFpEF) heart failure with preserved ejection fraction: Status: Acute (3) UTI (urinary tract infection): Status: Acute (4) HTN (hypertension): Status: Acute (5) Gastric ulcer: Status: Acute DS: Summary Hospital Course Hospital Course: Patient is an 80-year-old Welsh speaking female with a past medical history significant for gout, hypertension, CKD, HFpEF, and GERD, who presented to the ED due to weakness, dizziness, shortness of breath that began yesterday morning after waking up. Sepsis secondary to UTI resolved blood cultures NTD, trops indeterminate , UA ~ pyuria , UC pending - COVID/flu/RSV negative - chest CTA negative for pulmonary embolus. Mild diffuse interstitial prominence in both lungs as well as patchy ground-glass opacities may represent mild pulmonary edema/fluid overload (patient asymptomatic) - given 500 mL LR in ED, - ceftriaxone dx3. discharged on cefuroxime to complete 10 days course GEORGE: Cr went up on 1.33 to 2.06, received IVF in ed, and then was started on Lasix , hold lasix and lisinopril for 1-2 more days. Microcytic anemia Dysphagia:esophageal motility disorder - hemoglobin 7.6 , trending down - no obvious bleeding source - type and screen - blood transfusion consent ready - GI consulted, - egd and colonoscopy today - echo wnl underwent egd and colonoscopy today, showed gastric ulcer and colonic polyps. GI reccs Ok to resume a cardiac diet Ok to discharge patient on oral iron replacement and PO Omeprazole twice daily I will contact the patient with biopsy results. FU with PCP and repeat CBC next week. Pt can be referred back to GI if she has recurrent anemia. Repeat EGD in 3-4 months to confirm gastric ulcer has healed Repeat Colonoscopy is not indicated due to advanced age and multiple comorbidities. Pulmonary edema/fluid overload on CT - patient asymptomatic - lungs clear, no pitting edema - continue to monitor - hold home Lasix due to george. Gout - recovered from recent flare Hypertension - continue metoprolol, hold lisinopril due to george CKD 3 GEORGE improving - creatinine trending up - given 500 mL LR in ED - monitor BMP - avoid nephrotoxins when possible GERD - continue omeprazole Time Attestation Discharge Coordination Time (in mins): 40 mins Quality: Safe Use of Opioids Does Pt have an Active Cancer Diagnosis on the Problem List?: No Quality: Stroke Does the patient have a stroke diagnosis?: No Physical Exam Vital Signs: Vital Signs: Last Vital Signs Temp 97.4 F 05/27/25 15:17 Pulse 81 05/27/25 15:17 Resp 18 05/27/25 15:17 BP 133/64 05/27/25 15:17 Pulse Ox 95 05/27/25 15:17 O2 Del Method Room Air 05/27/25 15:17 O2 Flow Rate 4 05/27/25 12:02 BMI result Body Mass Index 24.1 DS: Data Data Completed and Pending Pending studies at discharge: Pending at discharge 05/27/25 11:34 Surgical [PTH] Routine Labs on day of discharge: Laboratory Results - last 24 hr 05/25/25 05/27/25 07:02 06:22 Hgb 9.0 L D Hct 27.6 L D Hold Purple Top SEE NOTE Sodium 143 Potassium 4.0 Chloride 104 Carbon Dioxide 29 Anion Gap 14 BUN 34 H Creatinine 1.53 H Estim Creat Clear Calc 23.4 Estimated GFR 32 Random Glucose 72 Calcium 7.9 L Total Bilirubin 0.2 AST 35 H ALT 38 H Alkaline Phosphatase 58 Total Protein 6.2 L Albumin 3.2 L Blood Type O Positive Antibody Screen NEGATIVE Crossmatch See Detail Preliminary micro results at discharge 05/24/25 16:56 Urine Culture - Preliminary Urine Catheterized - Montano Catheter Culture in progress. 05/24/25 15:45 Blood Culture - Preliminary Blood - Venous No growth after 48 hours. 05/24/25 15:45 Blood Culture - Preliminary Blood - Venous No growth after 48 hours. Discharge Plan Discharge Anticipated Discharge Date/Time: 05/25/25 12:58 Patient Disposition: Home, Self-Care Discharge Diagnosis: UTI, dysphagia Referrals: Physician,Unknown J [Physician, Medical] - 1 Week Discharge Medications: New cefuroxime axetil 250 mg tablet 250 mg PO BID 7 Days Qty: 14 0RF ferrous sulfate 325 mg (65 mg iron) tablet 325 mg PO DAILY Qty: 60 0RF pantoprazole [Protonix] 40 mg tablet,delayed release (DR/EC) 40 mg PO DAILY Qty: 90 1RF Continued lidocaine 5 % adhesive patch,medicated 1 patch topical DAILY prednisone 10 mg Tablet 10 mg PO DAILY Rx Instructions: Recent prednisone taper, has 1 week left at 1 tablet daily gabapentin 300 mg Capsule 300 mg PO TID metoprolol succinate 25 mg Tablet Extended Release 24 Hr 25 mg PO DAILY allopurinol 100 mg Tablet 100 mg PO DAILY diphenhydramine-acetaminophen [Acetaminophen PM] 25-500 mg tablet 1 tab PO BEDTIME PRN (Reason: Sleep) aspirin 81 mg tablet,delayed release (DR/EC) 81 mg PO DAILY Held lisinopril 5 mg Tablet 5 mg PO DAILY Hold Instructions: Resume on 05/29/25. hold until renal function improves further, resume on furosemide 20 mg Tablet 20 mg PO DAILY Hold Instructions: Resume on 05/29/25. hold due to renal injury Discontinued omeprazole 20 mg Capsule,Delayed Release(Dr/Ec) 20 mg PO DAILY@0630 Discharge Orders: Discharge Order (Routine); Ordered 05/27/25 Ordered By: Michelle Daigle Diet: Advance to usual diet Activity on Discharge: As tolerated Stand Alone Forms: Patient Portal Discharge page Print Language: Macedonian Care Plan Goals: see below Health Concerns: see below Plan of Treatment: presented with UTI and dysphagia, underwent egd and colonoscopy today, repeat CBC in 1 week with pcp, repeat EGD in 3-4 months to confirm gastric ulcer has healed complete course of Abx for uti. repeat CBC and CMP in 1 week. results to PCP. Assessment: see above
--- NOTE | 2025-05-27 17:33 | MHC.SL.SWA ---
Speech Pathologist Impression: Risk of Aspiration Due to: impulsivity Dysphasia Diet Status: Liquid Consistency and Strategies for Safe Swallow: Liquid Intake Recommendation: Thin Liquid Intake Strategies: Solid Food Consistency: Dietary Recommendations: Chopped/Advanced (NDD3) Additional Modifications to Solid Foods: Oral Medication Intake: Whole with Puree Please contact the pharmacy regarding appropriate crushable or liquid drug formulations that are available whenever modified delivery is recommended. Compensatory Strategies and Precautions to be Taken for Safe Swallow: Supervision While Eating and Drinking for Safe Swallow: Total Assistance (1:1) Foods to Avoid: Difficult to chew solids, too large pieces of food. Swallowing Recommended Treatments: Recommendation for Speech: Inpatient Speech Therapy Comment: Patient presents with a mild oral phase dysphagia due to edentulous state, however is at risk for aspiration secondary to impulsivity and fast rate of ingestion. Patient's impulsivity/rate with intake leads to marked SOB during meal if not cued and controlled to eat at a slower pace with pauses for respiration. Family is well familiar with behaviors, provided 1-1 feeding and direct cuing throughout meal. Patient also has history of GERD, should remain upright at least 30 minutes after meal. Recommend UPGRADE from NPO to Chopped/Advanced (NDD3) with Thin liquids, pills whole with puree. If family is not present, patient will require 1-1 feeding with curing to slow rate, take respiratory breaks. , RD notified of recommendation by secure text, RN in person. CASTING TESTER will follow if patient continues as inpatient. Frequency/Duration: Date Range for Service Req: Timeline to reassess: Machine Brusher Clinican/Clinical Fellow: No Supervisory Statement: I have reviewed and agree with the student/clinical fellow's documentation: N/A Speech Language Pathologist: Anh Zepeda M.A., CCC-CASTING TESTER
== END 2025-05-27 18:38 | disposition home or self-care (01) | DRG 871 ==
LOC: HO.ED 21:02 → HO.EDOVER 05-25 00:12 → HO.IMC 05-26 17:12
PROVIDERS: Internal Medicine Gastroenterology; Physician Assistant; Admitting Provider Internal Medicine; Emergency Provider Emergency Medicine; PCP Family Medicine; Visit Provider Hospitalist
PROC: 0DB98ZX Excision of Duodenum, Via Natural or Artificial Opening Endoscopic, Diagnostic (ICD-10-PCS; principal; 2025-05-27 10:50)
DX: A41.9 Sepsis, unspecified organism (principal); K25.4 Chronic or unspecified gastric ulcer with hemorrhage; I13.0 Hypertensive heart and chronic kidney disease with heart failure and stage 1 through stage 4 chronic kidney disease, or unspecified chronic kidney disease; I50.32 Chronic diastolic (congestive) heart failure; N39.0 Urinary tract infection, site not specified; N17.9 Acute kidney failure, unspecified; N18.30 Chronic kidney disease, stage 3 unspecified; D50.9 Iron deficiency anemia, unspecified; K63.5 Polyp of colon; D12.0 Benign neoplasm of cecum; K57.30 Diverticulosis of large intestine without perforation or abscess without bleeding; R13.10 Dysphagia, unspecified; M10.9 Gout, unspecified; K21.9 Gastro-esophageal reflux disease without esophagitis; Z20.822 Contact with and (suspected) exposure to COVID-19; Z87.891 Personal history of nicotine dependence; Z79.82 Long term (current) use of aspirin; Z79.899 Other long term (current) drug therapy
CPT/HCPCS: 36415; 71275; 80048; 80053; 81001; 82272; 82607; 82728; 82746; 82803; 83540; 83605; 83735; 83880; 84484; 85014; 85018; 85025; 85027; 85045; 86850; 86900; 86901; 86923; 87040; 87086; 87088; 87637; 88305; 88313; 88342; 92610; 93005; 93306; 99285; C1889; J0696; J2470; J2704; J7120; P9016; Q9957; Q9967

== ENCOUNTER → 2025-05-24 15:27 | Outpatient (BNV) | payer OTHER, SELFPAY | PROVIDERS: Admitting Provider Internal Medicine; Emergency Provider Emergency Medicine; Visit Provider Internal Medicine Cardiovascular Disease | DX: R53.1 Weakness (principal) | CPT/HCPCS: 93010 ==

== ENCOUNTER → 2025-05-24 15:43 | Outpatient (BNV) | payer OTHER, SELFPAY | PROVIDERS: Emergency Provider Emergency Medicine; Visit Provider Student in an Organized Health Care Education/Training Program | DX: R06.02 Shortness of breath (principal); R00.0 Tachycardia, unspecified; R53.1 Weakness | CPT/HCPCS: 71275 ==

== ENCOUNTER 2025-05-25 | Outpatient (BNV) | payer OTHER, SELFPAY | END 2025-05-27 07:00 | PROVIDERS: Admitting Provider Internal Medicine; Emergency Provider Emergency Medicine; PCP Family Medicine; Visit Provider Internal Medicine Cardiovascular Disease | DX: I34.0 Nonrheumatic mitral (valve) insufficiency (principal); I35.1 Nonrheumatic aortic (valve) insufficiency | CPT/HCPCS: 93306 ==

== ENCOUNTER → 2025-05-25 | Outpatient (BNV) | payer OTHER, SELFPAY | PROVIDERS: Admitting Provider Internal Medicine; Emergency Provider Emergency Medicine; Visit Provider Physician Assistant | DX: A41.9 Sepsis, unspecified organism (principal); N39.0 Urinary tract infection, site not specified; D50.9 Iron deficiency anemia, unspecified; N18.30 Chronic kidney disease, stage 3 unspecified | CPT/HCPCS: 99223 ==

== ENCOUNTER → 2025-05-25 | Outpatient (BNV) | payer OTHER, SELFPAY | PROVIDERS: Admitting Provider Internal Medicine; Emergency Provider Emergency Medicine; Visit Provider Internal Medicine Gastroenterology | DX: D50.9 Iron deficiency anemia, unspecified (principal) | CPT/HCPCS: 99232 ==

== ENCOUNTER → 2025-05-25 | Outpatient (BNV) | payer OTHER, SELFPAY | PROVIDERS: Admitting Provider Internal Medicine; Emergency Provider Emergency Medicine; PCP Family Medicine; Visit Provider Internal Medicine Cardiovascular Disease | DX: Z01.810 Encounter for preprocedural cardiovascular examination (principal); I50.30 Unspecified diastolic (congestive) heart failure | CPT/HCPCS: 99222 ==